=== PATIENT | female | born 1965 | race Caucasian/White ===

== ENCOUNTER 2019-05-18 06:24 | Inpatient (IN) | payer BC, OTHER ==
[~2019-05-18] VITALS: Ht 160 cm; Wt 56.7 kg
--- NOTE | 2019-05-18 06:24 | NUR ---
Note david in EDM - 05/18/19 at 0702 by MIK TO BED 4 BIB EMS FROM HOME C/O ETOH, OVERDOSE ON UNKNOWN AMOUTH OF SEROTUEL, TOPAMAX, LEXAPRO, AND APPROXIMATELY 6-8 PILLS OF NITE TIME COLD HEAD CONGESTION MEDICINE. PT REPORTS TO EMS THAT "SHE DIDN'T WANT TO WAKE UP ANYMORE" PER EMS REPORT. UPON ASSESSMENT PT REPORTS BEING "UNHAPPY AND A VERY DEMANDING JOB". UPON MD BOATENG PT STATES "I JUST WANT TO SLEEP BECAUSE I RAN OUT OF ALCOHOL". PT DENIES SI AND HI AT THIS TIME. NITE TIME COLD AND HEAD CONGESTION----EMPTY BOX TOPAMAX QTY 60PILLS----60 PILLS LEFT IN THE BOTTLE SEROQUEL 100MG, QTY 30 PILLS----EMPTY BOTTLE SEROQUEL 100MG, QTY 11PILLS----EMPTY BOTTLE SLEEP AID----PT REPORTS TOOK 6-8 PILLS AROUND [phone]
--- NOTE | 2019-05-18 06:24 | NUR ---
TO BED 4 BIB EMS FROM HOME C/O ETOH, OVERDOSE ON UNKNOWN AMOUTH OF SEROTUEL, TOPAMAX, LEXAPRO, AND APPROXIMATELY 6-8 PILLS OF NITE TIME COLD HEAD CONGESTION MEDICINE. PT REPORTS TO EMS THAT "SHE DIDN'T WANT TO WAKE UP ANYMORE" PER EMS REPORT. UPON ASSESSMENT PT REPORTS BEING "UNHAPPY AND A VERY DEMANDING JOB". UPON MD KILO PT STATES "I JUST WANT TO SLEEP BECAUSE I RAN OUT OF ALCOHOL". PT DENIES SI AND HI AT THIS TIME. NITE TIME COLD AND HEAD CONGESTION ----EMPTY BOX TOPAMAX QTY 60PILLS (FILLED ON 12/30/18) ----16 PILLS LEFT IN THE BOTTLE SEROQUEL 100MG, QTY 30 PILLS (FILLED ON 02/04/19) ----EMPTY BOTTLE SEROQUEL 100MG, QTY 11PILLS (FILLED ON 09/13/17) ----EMPTY BOTTLE SLEEP AID----PT REPORTS TOOK 6-8 PILLS AROUND [id number] Addendum: 05/18/19 at 0708 by ECABALLERO PT AAOX4 NO ACUTE DISTRESS NOTED, RESP EVEN AND UNLABORED. PLACE PT ON CARDIAC MONITORING, CONTINUOUS POX. ER MD AT BEDSIDE TO KILO PT WITH ORDERS RECEIVED.
--- NOTE | 2019-05-18 06:57 | NUR ---
SPOKE TO POISON CONTROL (MACK) ALL MEDS INFO PROVIDED REQUESTED. ADVICED TO MONITOR PT FOR SCRAP WHEELER DEPRESSION, SEIZURE PRECAUTION, HEPATOTOXICITY, CARDIOTOXICITY. POISON HIDE TANNER TRANSFERRED TO SPEAK TO ER .
[2019-05-18] MEDS ORDERED: PANTOPRAZOLE 40 MG VIAL IV ONE (07:00)
[2019-05-18] MEDS ORDERED: PANTOPRAZOLE 40 MG VIAL ONE (07:00)
[2019-05-18] MEDS ORDERED: IV NS 0.9% 1,000 ML BAG IV ONE (07:00)
--- NOTE | 2019-05-18 07:05 | NUR ---
IV INITIATED LAC 18G. LABS DRAWN FROM SITE. YARN SPOOLER AT BEDSIDE FOR COLLECTION. IV INTACT AND PATENT
--- NOTE | 2019-05-18 07:09 | NUR ---
PT UNABLE TO PROVIDE URINE SAMPLE AT THIS TIME, AWARE
[2019-05-18 07:13] LABS: BASOPHILS % (AUTO) 0.8 % (0.0-2.0); EOSINOPHILS % (AUTO) 1.2 % (0.0-6.0); HEMATOCRIT 39 % (33-45); HEMOGLOBIN 13.2 g/dL (11.5-14.8); LYMPHOCYTES % (AUTO) 36.1 % (20.0-44.0); MEAN CORPUSCULAR HGB CONC 34 g/dl (31.0-36.0); MEAN CORPUSCULAR VOLUME 95 fL (82-100); MONOCYTES # (AUTO) 0.3 /CMM (0.1-1.30); MONOCYTES % (AUTO) 11.4 % (2.0-12.0); NEUTROPHILS # (AUTO) 1.4 /CMM (1.8-8.9); NEUTROPHILS % (AUTO) 50.5 % (43.0-81.0); PLATELET COUNT (AUTO) 250 /CMM (150-450); RED BLOOD CELL COUNT(AUTO) 4.12 MIL/uL (4.0-5.2); WHITE BLOOD COUNT (AUTO) 2.7 K/uL (4.3-11.0)
--- NOTE | 2019-05-18 07:14 | NUR ---
REPORT GIVEN TO CARLO ART.
--- NOTE | 2019-05-18 07:39 | NUR ---
OMERO () CONTACT INFORMATION: [phone]
[2019-05-18 07:57] LABS: CALCIUM, SERUM 8.5 mg/dL (8.5-10.1); CREATININE 0.5 mg/dL (0.6-1.3); POTASSIUM 3.4 mmol/L (3.5-5.1)
[2019-05-18 08:13] LABS: BILIRUBIN,DIRECT 0.1 mg/dL (0.0-0.2); BILIRUBIN,TOTAL 0.1 mg/dL (0.2-1.0); TOTAL PROTEIN, SERUM 7.5 g/dL (6.4-8.2)
[2019-05-18 08:29] LABS: APPEARANCE,URINE Clear (CLEAR); BILIRUBIN,URINE Negative (NEGATIVE); BLOOD, URINE Negative Ery/uL (NEGATIVE); COLOR,URINE Yellow (YELLOW); KETONES,URINE Negative (NEGATIVE); LEUKOCYTE ESTERASE ,URINE Negative (NEGATIVE); NITRITE, URINE Negative (NEGATIVE); PROTEIN,URINE Negative (NEGATIVE); UGLUCOSE Negative (NEGATIVE); UROBILINOGEN,URINE 0.2 EU/dL (0.2)
[2019-05-18 08:32] LABS: SALICYLATE 1.8 mg/dL (2.8-20.0)
--- NOTE | 2019-05-18 09:17 | NUR ---
PATIENT AMBULATORY, IN NO DISTRESS. NEEDS ATTENDED.
--- NOTE | 2019-05-18 09:31 | NUR ---
CALLED [facility], SPOKE WITH PRINCESS. HE RECOMMENDS TREATING WITH NAC
--- NOTE | 2019-05-18 09:48 | NUR ---
PAGED NICHELLE ACUTE CARE CERTIFIED NURSING ASSISTANT FOR ADMISSION
[2019-05-18] MEDS ORDERED: ACETYLCYSTEINE IV ONE ×4 (10:00→15:30)
[2019-05-18] MEDS ORDERED: D5W IV ONE ×3 (10:00→11:00)
[2019-05-18] MEDS ORDERED: LORAZEPAM INJ 2 MG/ML VIAL IVP ONE (10:00)
[2019-05-18] MEDS ORDERED: LORAZEPAM INJ 2 MG/ML VIAL ONE (10:07)
[2019-05-18] MEDS ORDERED: ESTR1PAT86 (10:50)
[2019-05-18] MEDS ORDERED: QUET50TA79 PO (10:50)
--- NOTE | 2019-05-18 11:45 | NUR ---
REPORT GIVEN TO SHARON ART FOR TALIA.
--- NOTE | 2019-05-18 12:14 | NUR ---
PATIENT TRANSFERRED TO ROOM 111-1 VIA ACLS PROTOCOL. IN STABLE CONDITION. NO DISTRESS NOTED, NEEDS ATTENDED. ENDORSED TO SHARON ART.
[2019-05-18 12:15] VITALS: BP 154/84
--- NOTE | 2019-05-18 12:15 | NUR ---
RN NOTE RECEIVED PT FROM ER, AOX3, CO ABOUT PRESSURE IN MID CHEST AND DISCOMFORT WHEN EXHALING. PT AMBULATORY, CO BEING THIRSTY AND LITTLE HUNGER. IV INTACT AND IN PLACE, IV MUCOMYST INFUSING AT 129 ML/HR. SAFETY MEASURES IN PLACE, CALL LIGHT WITHIN REACH, SIDE RAILS PADDED, SITTERJONATAN AT BEDSIDE. VS STABLE. WILL F/U WITH ADMITTING MD FOR ORDERS. Addendum: 05/18/19 at 1929 by SHARON MO RN 1215 PT PLACED ON SIX PACK LOADER OPERATOR, ST 104.
[2019-05-18] MEDS ORDERED: LORAZEPAM INJ 2 MG/ML VIAL IV PRN ×2 (12:30)
[2019-05-18] MEDS ORDERED: MAGNESIUM HYDROXIDE 30 ML UDC PO PRN (12:30)
[2019-05-18] MEDS ORDERED: ZOLPIDEM TARTRATE 5 MG TABLET PO PRN (12:30)
[2019-05-18] MEDS ORDERED: MAG HYDROX/AL HYDROX/SIMETH 30 ML UDC PO PRN (12:30)
[2019-05-18] MEDS ORDERED: ONDANSETRON HCL/PF 4 MG/2 ML VIAL IVP PRN (12:30)
[2019-05-18] MEDS ORDERED: Z GUARD REMEDY 2 OZ OINT TP PRN (12:30)
[2019-05-18] MEDS ORDERED: IV D5/ 0.9% NACL 1,000 ML IV PRN (13:30)
[2019-05-18] MEDS ORDERED: DEXTROSE IV ONE (15:30)
[2019-05-18 16:00] VITALS: BP 139/91
--- NOTE | 2019-05-18 17:15 | NUR ---
RN NOTE RECEIVED CALL FROM WESLEY, PHARMACIST FROM POISON CONTROL RECOMMENDING TO REPEAT LFT, INR AND ACETAMINOPHEN LEVEL IN 15 HR AFTER INITIATING MYCOMYST IV FOR 16 HR, AND IF LFT INCREASED OR INR>2.0 TO CONTINUE MYCOMYST. WILL ENDORSE TO NEXT SHIFT.
--- NOTE | 2019-05-18 17:55 | NUR ---
RN NOTE PT EXPRESSED WISH TO GO HOME STATING "I AM FEELING FINE" SELIN PARK NOTIFIED, PT RECOMMENDED TO STAY FOR FURTHER WORK UP, RISKS OF LEAVING AMA AND BENEFITS TO STAY EXPLAINED, PT STILL WANTS TO LEAVE AMA. AMA PAPER SIGNED AND PLACED IN THE CHART. IV AND ID BAND REMOVED, BELONGINGS PROVIDED TO PT, PT WALKED OUT HERSELF, STATING "I LEAVE CLOSE BY." SHE SPOKE TO HER WELL ON THE PHONE.
== END 2019-05-18 18:00 | disposition home or self-care (01) | DRG 918 ==
LOC: ER 06:26 → TELE-TD 11:52
PROVIDERS: ADMIT Hospitalist; ATTEND Hospitalist
DX: T39.1X1A Poisoning by 4-Aminophenol derivatives, accidental (unintentional), initial encounter (principal); F10.239 Alcohol dependence with withdrawal, unspecified; G47.00 Insomnia, unspecified; Y92.009 Unspecified place in unspecified non-institutional (private) residence as the place of occurrence of the external cause; T51.0X1A Toxic effect of ethanol, accidental (unintentional), initial encounter; Y90.3 Blood alcohol level of 60-79 mg/100 ml; E87.6 Hypokalemia; Z79.899 Other long term (current) drug therapy; Z91.14 Patient's other noncompliance with medication regimen
CPT/HCPCS: 36415; 80048-TC; 80076-TC; 80305; 81000-TC; 85025-TC; 85730-TC; C9113; G0378; G0480; J0132; J2060; J7030; J7042; J7060; J7070

== ENCOUNTER 2019-07-02 21:05 | Inpatient (IN) | payer BC, OTHER ==
[~2019-07-02] VITALS: Ht 162.6 cm; Wt 56.2 kg
[~2019-07-02 21:05] MED LIST: ESTR1PAT86; QUET50TA79 PO
--- NOTE | 2019-07-02 21:08 | NUR ---
PT IN BED 10 BIB RA FROM HOME. PATIENT STATES CALLED 911 BECAUSE SHE HAD BEEN IN BED FOR WEEKS. PT ENDORSES DRINKING VODKA AND TAKING HER PRESCRIPTIONS. +NAUSEA, +VOMNITING. BROWN VOMIT W/ RED STREAKS OF BLOOD NOTED. AAOX3. NO SOB. BREATHING EVENLY AND UNLABORED ON ROOM AIR. CONNECTED TO MONITOR.
--- NOTE | 2019-07-02 21:21 | NUR ---
BLOOD DRAWN FROM PATIENT AND SENT TO LAB
[2019-07-02 21:23] LABS: BASOPHILS % (AUTO) 0.7 % (0.0-2.0); EOSINOPHILS % (AUTO) 0.3 % (0.0-6.0); HEMATOCRIT 38 % (33-45); HEMOGLOBIN 12.7 g/dL (11.5-14.8); LYMPHOCYTES # (AUTO) 1.4 /CMM (0.8-4.8); LYMPHOCYTES % (AUTO) 25.7 % (20.0-44.0); MEAN CORPUSCULAR HGB CONC 33 g/dl (31.0-36.0); MEAN CORPUSCULAR VOLUME 96 fL (82-100); MONOCYTES # (AUTO) 0.6 /CMM (0.1-1.30); MONOCYTES % (AUTO) 10.4 % (2.0-12.0); NEUTROPHILS # (AUTO) 3.3 /CMM (1.8-8.9); NEUTROPHILS % (AUTO) 62.9 % (43.0-81.0); PLATELET COUNT (AUTO) 197 /CMM (150-450); RED BLOOD CELL COUNT(AUTO) 3.96 MIL/uL (4.0-5.2); WHITE BLOOD COUNT (AUTO) 5.3 K/uL (4.3-11.0)
--- NOTE | 2019-07-02 21:32 | NUR ---
KALIND AT BEDSIDE FOR QUESTIONING
[2019-07-02 21:40] LABS: ALANINE AMINOTRANSFERASE 102 U/L (12-78); ALBUMIN 4.1 g/dL (3.4-5.0); ALCOHOL, BLOOD 25 mg/dL (0-0); ALKALINE PHOSPHATASE 55 U/L (46-116); ASPARTATE AMINOTRANSFERASE 97 U/L (15-37); BILIRUBIN,DIRECT 0.1 mg/dL (0.0-0.2); BILIRUBIN,TOTAL 0.4 mg/dL (0.2-1.0); CALCIUM, SERUM 8.9 mg/dL (8.5-10.1); CARBON DIOXIDE 19 mmol/L (21-32); CHLORIDE 89 mmol/L (98-107); CREATININE 0.6 mg/dL (0.6-1.3); GLUCOSE 161 mg/dL (74-106); POTASSIUM 3.3 mmol/L (3.5-5.1); SALICYLATE 5.4 mg/dL (2.8-20.0); SODIUM SERUM 129 mmol/L (136-145); TOTAL PROTEIN, SERUM 7.5 g/dL (6.4-8.2); UREA NITROGEN, BLOOD 6 mg/dL (7-18)
--- NOTE | 2019-07-02 21:40 | NUR ---
PATIENT DENIES SUICIDAL INTENT OR PLAN TO HARM SELF OR OTHERS PER SUICIDE SEVERITY RATING.
--- NOTE | 2019-07-02 21:45 | NUR ---
RECEIVED PILL BOTTLES FROM PT . SEROQUEL 50MG BOTTLE QUANTITY 30 FILLED ON 06/19/19- FOUND 12 PILLS LEFT IN THE BOTTLE PROZAC 20MG BOTTLE QUANTITY 30 FILLED ON 05/18/17- EMPTY BOTTLE BUPROPION XL 150MG QUANTITY 30 FILLED ON 05/20/15 - EMPTY BOTTLE CLARITIN BUBBLE PACK QUANTITY 10- EMPTY
--- NOTE | 2019-07-02 21:50 | NUR ---
NOTED PT HAVING A SEIZURE LASTING APPROXIMATELY 60SEC ER MD MADE AWARE WITH ORDERS RECEIVED. WILL CARRY OUT ORDERS.
[2019-07-02] MEDS ORDERED: LORAZEPAM INJ 2 MG/ML VIAL ONE (21:51)
[2019-07-02 21:52] LABS: ACETAMINOPHEN < 10 ug/ml (10-30)
--- NOTE | 2019-07-02 21:52 | NUR ---
NOTED PT HAVING ANOTHER SEIZURE LASTING APPROXIMATELY 30 SEC. ER MD REMAINS AT BEDSIDE. PT MEDICATED ORDERED. PLACE PT ON SEIXURE PRECATION WITH PADDED SIDERAIL. NOTED PT WITH ORAL TRAUMA, (+) URINARY INCONTINENCE. PT ON 100% NONREBREATHER MASK 15L, PT ON REMAINS ON CONTINUOUS CARDIAC MONITORING, CONTINUOUS POX. WILL CONTINUE TO MONITOR PT CLOSELY.
--- NOTE | 2019-07-02 21:55 | NUR ---
SPOKE WITH IVETTE FROM POISON CONTROL. PER IVETTE, BUPROPRION XL MOST LIKELY CAUSE FOR SEIZURE. MINIMUM 24HR OBSERVATION FOR DELAYED REACTION. MAINTAIN SEIZURE PRECAUTION AND KEEP PT ON HARNESS TIER MONITOR FOR PROLONGED QTC (ABOVE 500, CALL BACK POISON CONTROL) MONITOR FOR QRS WIDENING (ABOVE 120, CALL BACK POISON CONTROL) REPEAT EKG 4-6HRS REPEAR LIVER ENZYMES 3-4HRS Addendum: 07/02/19 at 2214 by CHARIS PER IVETTE FROM POISON CONTROL, ALSO REPEAT SALICYLATES 3-4HR
[2019-07-02] MEDS ORDERED: LORAZEPAM INJ 2 MG/ML VIAL IVP ONE (22:00)
--- NOTE | 2019-07-02 22:28 | NUR ---
STRAIGHT CATH DONE. APPROX 750 ML YELLOW URINE OUTPUT NOTED. PT WAS CLEANED AND DIAPER APPLIED. URINE SAMPLE SENT TO THE LAB.
--- NOTE | 2019-07-02 22:29 | NUR ---
PT BROUGHT TO CT
--- NOTE | 2019-07-02 22:29 | NUR ---
[facility] [place]
[2019-07-02] MEDS ORDERED: LABETALOL 20 MG/4 ML VIAL IV ONE (22:30)
[2019-07-02] MEDS ORDERED: IV NS 0.9% 1,000 ML BAG IV ONE (22:30)
[2019-07-02 22:35] LABS: APPEARANCE,URINE Clear (CLEAR); BILIRUBIN,URINE Negative (NEGATIVE); BLOOD, URINE Negative Ery/uL (NEGATIVE); COLOR,URINE Yellow (YELLOW); KETONES,URINE 15 (NEGATIVE); LEUKOCYTE ESTERASE ,URINE Negative (NEGATIVE); NITRITE, URINE Negative (NEGATIVE); PROTEIN,URINE Negative (NEGATIVE); UGLUCOSE Negative (NEGATIVE); UROBILINOGEN,URINE 0.2 EU/dL (0.2)
[2019-07-02] MEDS ORDERED: LABETALOL HCL IV 100MG VIAL ONE (22:47)
[2019-07-02 23:20] LABS: BACTERIA,URINE Rare /HPF (None Seen); RBC,URINE 0-2 /HPF (0-2); SQUAMOUS EPITHELIAL CELL,UR Rare /HPF (None Seen); WBC,URINE 0-2 /HPF (0-3)
--- NOTE | 2019-07-02 23:33 | NUR ---
PT RESTING COMFORTABLY, NO ACUTE DISTRESS NOTED, RESP EVEN AND UNLABORED. CALL LIGHT WITHIN REACH. PT REMAINS AT BEDSIDE. WILL CONTNINUE TO MONITOR PT CLOSELY. PT AND AWARE OF PENDING HOSPITAL ADMISSION. AWAITING BED AVAILABILITY FOR PT ADMISSION.
[2019-07-03] MEDS ORDERED: ONDANSETRON HCL/PF 4 MG/2 ML VIAL IVP PRN
[2019-07-03] MEDS ORDERED: Z GUARD REMEDY 2 OZ OINT TP PRN
[2019-07-03] MEDS ORDERED: LORAZEPAM INJ 2 MG/ML VIAL ONE (00:27)
--- NOTE | 2019-07-03 00:55 | NUR ---
BED ASSIGNMENT 309
--- NOTE | 2019-07-03 01:18 | NUR ---
report given to raquel ART for TALIA
[2019-07-03] MEDS: IV NS 0.9% 1,000 ML IV PRN ×2 (02:16→19:51)
--- NOTE | 2019-07-03 02:41 | NUR ---
TD RN NOTES RECEIVED PT FROM ER NURSE, A/O X 1 VERY RESTLESS. ON TELE MONITOR ST. ON NRB 15L NO RESPIRATORY DISTRESS NOTED. IV ACCESS ON LFA G 18 PATENT AND INTACT WITH NS RUNNING WELL @75CC/HR . SEIZURES PRECAUTION OBSERVED.
--- NOTE | 2019-07-03 02:42 | NUR ---
TD RN NOTES PT DENIES ANY SUICIDAL IDEATION. SITTER AT BEDSIDE.
[2019-07-03 02:43] LABS: BASOPHILS % (AUTO) 0.1 % (0.0-2.0); HEMATOCRIT 34 % (33-45); HEMOGLOBIN 11.7 g/dL (11.5-14.8); LYMPHOCYTES # (AUTO) 0.5 /CMM (0.8-4.8); LYMPHOCYTES % (AUTO) 5.7 % (20.0-44.0); MEAN CORPUSCULAR HGB CONC 34 g/dl (31.0-36.0); MEAN CORPUSCULAR VOLUME 94 fL (82-100); MONOCYTES # (AUTO) 0.5 /CMM (0.1-1.30); MONOCYTES % (AUTO) 5.3 % (2.0-12.0); NEUTROPHILS # (AUTO) 8.3 /CMM (1.8-8.9); NEUTROPHILS % (AUTO) 88.9 % (43.0-81.0); PLATELET COUNT (AUTO) 168 /CMM (150-450); RED BLOOD CELL COUNT(AUTO) 3.65 MIL/uL (4.0-5.2); WHITE BLOOD COUNT (AUTO) 9.4 K/uL (4.3-11.0)
--- NOTE | 2019-07-03 02:43 | NUR ---
LIVAN RN NOTES SPOKE TO XAVIER MACIAS, FOR POISON CONTROL RECOMMENDATION. PER NICHELLE CARRY OUT ORDERS SALICYLATE, EKG Q6H , LFTQ4H , CPK Q4H.
--- NOTE | 2019-07-03 02:45 | NUR ---
TD RN NOTES POISON CONTROL UPDATED REGARDING PT CONDITION. WILL CALL BACK IN AN HOUR.
[2019-07-03 02:48] VITALS: BP 112/77
[2019-07-03 02:59] LABS: ALBUMIN 3.7 g/dL (3.4-5.0); BILIRUBIN,TOTAL 0.8 mg/dL (0.2-1.0); CREATININE 0.5 mg/dL (0.6-1.3); MAGNESIUM 1.8 mg/dL (1.8-2.4); PHOSPHORUS 2.9 mg/dL (2.5-4.9); POTASSIUM 3.8 mmol/L (3.5-5.1); TOTAL PROTEIN, SERUM 6.7 g/dL (6.4-8.2)
[2019-07-03 03:01] LABS: ALBUMIN 3.7 g/dL (3.4-5.0); BILIRUBIN,DIRECT 0.2 mg/dL (0.0-0.2); BILIRUBIN,TOTAL 0.8 mg/dL (0.2-1.0); TOTAL PROTEIN, SERUM 6.7 g/dL (6.4-8.2)
[2019-07-03 03:08] LABS: THYROID STIMULATING HORMONE 2.93 uIU/mL (0.358-3.74)
[2019-07-03 04:00] VITALS: BP 132/83
--- NOTE | 2019-07-03 04:22 | NUR ---
TD RN NOTES PAGED ELECTRIC MOTOR REPAIRER FOR POISON CONTROL RECOMMENDATION
--- NOTE | 2019-07-03 05:29 | NUR ---
LIVAN RN NOTES ORDERED MAGNESIUM 2GM AND EKG SCHEDULED 1000 PER POISON CONTROL. NICHELLE MACIAS NOTIFIED.
[2019-07-03] MEDS: Magnesium 1GM/D5W 100ML PREMIX 100 ML IV SCH ×2 (05:39→06:27)
--- NOTE | 2019-07-03 06:10 | NUR ---
TD RN NOTES NO ACUTE CHANGES NOTED DURING THE SHIFT. PROVIDED COMFORT AND SAFETY. NO EPISODE OF SEIZURE NOTED. WILL ENDORSE TO THE AM NURSE FOR CONTINUITY OF CARE.
--- NOTE | 2019-07-03 07:30 | NUR ---
RN NOTE RECEIVED PT IN BED IN SUPINE POSITION. PT IS ALERT AND ORIENTED X 1. NO SOB NOTED. ON ROOM AIR. REORIENTED PT TO FACILITY. ON TELE MONITOR SINUS TACHYCARDIA. SKIN INTACT. CURRENTLY NPO. SIDE RAILS PADDED. SAFETY MEASURES IN PLACE. BED ALARM ON. WILL CONTINUE TO MONITOR.
[2019-07-03 08:00] VITALS: BP 128/80
--- NOTE | 2019-07-03 08:00 | NUR ---
RN NOTES PATIENT ASKED IF SHE WAS PLANNING TO KILL HERSELF WHEN SHE TOOK THE MEDICATION, BUT PATIENT DENIES IT AND SAID " I HAVE AN ALCOHOL PROBLEM THAT LYDIA BEEN FIGHTING FOR YEARS NOW. I JUST WANTED TO GO TO SLEEP. CAUSE IT FEELS GOOD." ASKED IF THERE IS SUICIDAL THOUGHTS AT THE MOMENT, PATIENT DENIES.
[2019-07-03] MEDS ORDERED: TOPI25TA49 PO (08:29)
[2019-07-03] MEDS ORDERED: QUET25TA PO (08:29)
[2019-07-03 12:00] VITALS: BP 116/74
--- NOTE | 2019-07-03 14:30 | NUR ---
RN NOTE SEEN AND EXAMINED BY JOSÉ MIGUEL MACIAS. WITH ORDER TO NOTIFY POISON CONTROL REGARDING PT'S STATUS AND TO ORDER PSYCHIATRIC CONSULT AND REGULAR DIET. SPOKE TO IVETTE FROM POISON CONTROL AND GAVE UPDATE ON VITALS, LABS AND RECENT EKGS. WITH RECOMENDATION TO DO REPEAT EKG.
[2019-07-03 16:00] VITALS: BP 124/83
--- NOTE | 2019-07-03 16:30 | NUR ---
Plant Floor Automation Manager requested by Dr. René Rios due to Drug Abuse. The pt. is a 54 year old Female brought paramedics. Per EMR, the pt. called the paramedics after the pt. overdosed on Prozac, Seroquel, Wellbutrin, and Claritin. Per EMR, pt. has Hx. of 2 failed suicide attempts. Patient denies current S.I. and stated, I took those drugs because I ran out of Vodka which I normally use. Per pt. she drinks about 1.5 pints of Vodka a day. Per pt. she has used [facility] for the past 20 years and has previously accepted inpatient rehab at [facility]. [facility] [[address] [place], [address]; [phone]] and [facility] ([facility]) [[address] [place] [address]; [phone]]. Per patients , Aryan Bennett [phone], he would like the pt. to return to [facility]. Rajni FAJARDO will follow up tomorrow for referral closer to discharge date if pt. is agreeable.
--- NOTE | 2019-07-03 17:00 | NUR ---
RN NOTES CALLED POISON CONTROL AND SPOKE TO LESLIE TO REPORT ON THE NEW EKG RESULT. OBTAINED RECOMMENDATION FOR STAT CMP, MG, CALCIUM, AND EKG IN 6 HOURS. LCALLED GILBERTO DALY TO RELAYED RECCOMMENDATION. LATTER, PERMITTED. ORDERS PLACED. NOTED AND CARRIED OUT
[2019-07-03 18:10] LABS: ALBUMIN 3.9 g/dL (3.4-5.0); BILIRUBIN,TOTAL 0.7 mg/dL (0.2-1.0); CALCIUM, SERUM 8.4 mg/dL (8.5-10.1); CREATININE 0.5 mg/dL (0.6-1.3); MAGNESIUM 2.3 mg/dL (1.8-2.4); TOTAL PROTEIN, SERUM 7.3 g/dL (6.4-8.2)
--- NOTE | 2019-07-03 19:00 | NUR ---
RN NOTE AWAITING CALL BACK FROM GILBERTO ALANIS REGARDING RECENT LAB VALUES. PT IS IN BED AWAKE AND ALERT X 2. SAFETY MEASURES IN PLACE. BED ALARM ON. SIDE RAILS PADDED, SITTER AT BEDSIDE FOR CLOSE MONITORING. ENDORSED TO ONCOMING SHIFT.
--- NOTE | 2019-07-03 19:00 | NUR ---
RN NOTES PAGED GILBERTO DALY TO RELAY LAB RESULTS. AWAITING RESPONSE
[2019-07-03 20:00] VITALS: BP 143/80
[2019-07-03] MEDS ORDERED: POTASSIUM CHLORIDE 20 MEQ TAB.PRT.SR PO ONE (20:00)
--- NOTE | 2019-07-03 20:33 | NUR ---
Patient awake alert and oriented x3.No acute distress noted.K+ 3.0 with orders to give K-DUR 40 MEQ PO given and KCL 40 meq IVPB.Report given to Jennifer Aj RN for continuity of care
--- NOTE | 2019-07-03 20:34 | NUR ---
DIRECTOR OF STRATEGIC ALLIANCES OPENING NOTES RECEIVED PATIENT IN BED, AWAKE, A/OX2. ON ROOM AIR, NO SOB OR RESPIRATORY DISTRESS NOTED. REORIENTED PT TO FACILITY. ON TELE MONITOR SINUS TACHYCARDIA WITH HR 102. DENIES ANY SUICIDAL THOUGHTS AT THE MOMENT. IV SITE LEFT FA 18G WITH NS RUNNING AT 75ML/HR, FLUSHING AND PATENT, NO INFILTRATION NOTED, SITE C/D/I. SAFETY MEASURES IN PLACE, SIDE RAILS UP X3 AND PADDED, BED ALARM ON, SITTER 1:1 FOR PT SAFETY. WILL CONTINUE TO MONITOR.
[2019-07-03] MEDS: POTASSIUM CL. PREMIX PERIPHER. 50 ML IV SCH ×3 (21:14→23:12)
[2019-07-04] VITALS: BP 148/86
--- NOTE | 2019-07-04 00:02 | NUR ---
RESOURCE PROGRAM TEACHER NOTES PATIENT STATED SHE HAS LOWER BACK SPASM AND IS REQUESTING FOR PAIN MEDICATION. WILL ADMINISTER PRN PAIN MEDICATION.
[2019-07-04] MEDS: ACETAMINOPHEN 325 MG TABLET PO PRN (00:11)
[2019-07-04] MEDS: POTASSIUM CL. PREMIX PERIPHER. 50 ML IV SCH (00:27)
--- NOTE | 2019-07-04 00:30 | NUR ---
FINAL INSPECTOR PAPER NOTES RT UNABLE TO DO EKG DESPITE DISCUSSION OF RISKS AND BENEFITS. WILL TRY AGAIN LATER.
--- NOTE | 2019-07-04 00:36 | NUR ---
RT NOTE Late Entry: Unable to perform EKG, Pt is non compliant. hat cone inspector is aware
[2019-07-04] MEDS ORDERED: LORAZEPAM INJ 2 MG/ML VIAL IV STA ×2 (01:10→03:13)
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
--- NOTE | 2019-07-04 02:01 | NUR ---
HIGH LIFT DRIVER NOTES CALLED PATIENT'S , OMERO TO HELP PATIENT CALM DOWN. EXPLAINED TO PT'S THAT PT WAS VERY AGITATED AND CONFUSED. ALSO, EXPLAINED TO THAT PT WAS GIVEN ATIVAN TO HELP CALM HER DOWN. WILL CONT TO MONITOR PT CLOSELY.
--- NOTE | 2019-07-04 03:05 | NUR ---
0305 PATIENT IS GETTING VERY AGITATED AGAIN, AT BEDSIDE AND TRYING TO CALM PATIENT DOWN TO NO AVAIL. KETTLE HAND GEE NOTIFIED WITH ORDER TO GIVE ANOTHER DOSE OF ATIVAN 1 MG IVP. ORDER NOTED AND NOTIFIED OF ORDER.
--- NOTE | 2019-07-04 03:22 | NUR ---
0322 UNABLE TO GIVE ATIVAN DUE TO PATIENT JUST PULLED OUT HER IV ACCESS. TREASURY DIRECTOR GEE MADE AWARE AND WANT TO DO STAT EKG BEFORE SHE COULD GIVE AN ORDER FOR HALDOL. MADE HER AWARE THAT EKG CANNOT BE DONE BECAUSE PATIENT IS VERY AGITATED AND WOULD NOT LET NURSES AND RT PUT EKG LEADS ON. PATIENT UP AND OUT OF BED TRYING TO LEAVE ROOM. REMAINS AT BEDSIDE AND TRYING TO CALM PATIENT DOWN. PATIENT IS GETTING EVEN MORE AGITATED AND SCREAMING. NO SIGNS OF DISTRESS NOTED. ASSISTED PATIENT TO CHAIR.
[2019-07-04] MEDS ORDERED: diphenhydrAMINE HCL 50 MG/ML VIAL IV STA (03:34)
--- NOTE | 2019-07-04 03:50 | NUR ---
0350 STILL UNABLE TO DO EKG DUE TO PATIENT AGITATION. NEW IV ACCESS ESTABLISHED AND BENADRYL WAS GIVEN ORDERED. ASSISTED PATIENT BACK TO BED. REMAINS AT BEDSIDE. WILL CONT. TO MONITOR PATIENT. RAILS KEPT PADDED FOR SEIZURE PRECAUTION. KEPT PATIENT CLEAN AND DRY. CALL LIGHT PLACED WITHIN REACH. NURSE IN THE ROOM WATCHING PATIENT.
--- NOTE | 2019-07-04 03:56 | NUR ---
COMPUTER AIDED DESIGN TECHNICIAN NOTES PATIENT REFUSING IV FLUIDS AND VITAL SIGNS; GETS MORE AGITATED WHEN BEING TOUCHED. STILL AT BEDSIDE. WILL CONT TO MONITOR PT CLOSELY.
--- NOTE | 2019-07-04 06:17 | NUR ---
MANAGER SWITCH NOTES PATIENT STILL REFUSING VITAL SIGNS AND IV INSERTION DESPITE DISCUSSION OF RISKS AND BENEFITS. PT HALLUCINATING AND STATED "EVERYTHING IS FINE. I DON'T NEED AN IV. JUST FIX THOSE BOOKS BEHIND YOU" PATIENT ALSO NOT ANSWERING WHEN BEING ASKED FOR HER NAME AND BIRTHDAY. WILL CONT TO MONITOR PT CLOSELY.
--- NOTE | 2019-07-04 06:40 | NUR ---
VENDING MACHINE COLLECTOR NOTES PATIENT AGITATED AGAIN AND HITTING STAFF. HOSPITALIST MADE AWARE AND ORDERED BILATERAL SOFT WRIST RESTRAINTS. WILL ATTEND TO ORDERS.
[2019-07-04 07:00] VITALS: BP 149/87
--- NOTE | 2019-07-04 07:31 | NUR ---
RAG BOILER CLOSING NOTES PATIENT IN BED, AWAKE, A/OX1-2. SITTER 1:1 FOR PT SAFETY. ON ROOM AIR, NO SOB OR RESPIRATORY DISTRESS NOTED. REORIENTED PT TO FACILITY. ON TELE MONITOR SINUS TACHYCARDIA WITH HR 106. DENIES ANY SUICIDAL THOUGHTS AT THE MOMENT. IV SITE RIGHT FA 22G WITH NS RUNNING AT 75ML/HR, FLUSHING AND PATENT, NO INFILTRATION NOTED. BILATERAL WRIST RESTRAINTS D/T PT HITTING STAFF AND REMOVING IV LINE. SAFETY MEASURES IN PLACE, SIDE RAILS UP X2 AND PADDED, BED ALARM ON. ENDORSED TO AM RN FOR TALIA. Addendum: 07/04/19 at 0845 by HUGO GUADALUPE RN ATIVAN 1MG VIA IV NEVER GIVEN D/T HOSPITALIST CHANGED ORDER. MEDICATION WASTED PER PROTOCOL.
[2019-07-04 07:41] LABS: BASOPHILS % (AUTO) 0.2 % (0.0-2.0); EOSINOPHILS % (AUTO) 0.2 % (0.0-6.0); HEMATOCRIT 37 % (33-45); HEMOGLOBIN 12.7 g/dL (11.5-14.8); LYMPHOCYTES # (AUTO) 1.2 /CMM (0.8-4.8); LYMPHOCYTES % (AUTO) 11.8 % (20.0-44.0); MEAN CORPUSCULAR HGB CONC 34 g/dl (31.0-36.0); MEAN CORPUSCULAR VOLUME 95 fL (82-100); MONOCYTES # (AUTO) 0.9 /CMM (0.1-1.30); MONOCYTES % (AUTO) 8.9 % (2.0-12.0); NEUTROPHILS # (AUTO) 7.8 /CMM (1.8-8.9); NEUTROPHILS % (AUTO) 78.9 % (43.0-81.0); PLATELET COUNT (AUTO) 165 /CMM (150-450); RED BLOOD CELL COUNT(AUTO) 3.89 MIL/uL (4.0-5.2); WHITE BLOOD COUNT (AUTO) 9.8 K/uL (4.3-11.0)
--- NOTE | 2019-07-04 07:45 | NUR ---
RN NOTE RECEIVED PATIENT IN BED AWAKE AND ALERT. ORIENTED X 2, PATIENT SCREAMING UNCONTROLLABLY. RESTRAINTS IN PLACE. WITH 1;1 SITTER. DECREASED STIMULI IN ROOM. SAFETY MEASURES IN PLACE. SIDE RAILS PADDED. CALL LIGHT WITHIN REACH. WILL MONITOR.
[2019-07-04 08:00] VITALS: BP 135/88
[2019-07-04 08:03] LABS: CALCIUM, SERUM 8.9 mg/dL (8.5-10.1); CREATININE 0.6 mg/dL (0.6-1.3); POTASSIUM 3.7 mmol/L (3.5-5.1)
[2019-07-04] MEDS ORDERED: OLANZAPINE 10 MG VIAL IM ONE ×2 (08:30→15:10)
[2019-07-04] MEDS ORDERED: LORAZEPAM INJ 2 MG/ML VIAL IV PRN (10:30)
--- NOTE | 2019-07-04 11:30 | NUR ---
RN NOTE RUBENS GUZMAN FROM CRISIS TEAM IS HERE. ORIGINAL COPY OF 3729 HOLD IS IN THE PATIENT'S CHART.
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
--- NOTE | 2019-07-04 11:38 | NUR ---
RN NOTE POISON CONTROL CALLED. UPDATE GIVEN REGARDING PT BEHAIVOR, EKG AND VITAL SIGNS. NO RECCOMENDATIONS GIVEN AT THIS TIME.
[2019-07-04 12:00] VITALS: BP 130/95
--- NOTE | 2019-07-04 12:00 | NUR ---
RN NOTE GPS BED 219B AVAILABLE, WAITING FOR ADDY'S CALL BACK TO GET DISCHARGE ORDER.
--- NOTE | 2019-07-04 12:17 | NUR ---
RN NOTE TALKED TO ADDY AUTOMOBILE ACCESSORIES INSTALLER REGARDING PT POSSIBLE DISCHARGE. PER AUTOMOBILE ACCESSORIES INSTALLER, CANCEL D/C TODAY AND CONTINUE MONITORING PT, POSSIBLE DC TOMORROW FOR GPS.
--- NOTE | 2019-07-04 12:50 | NUR ---
RN NOTE CCRS WAS DONE AT BEDSIDE. EVEN WITH EXTREME AGITATION; PATIENT IS NOT HAVING ANY SUICIDAL IDEATION OR ANY PLANS AT THIS TIME.
[2019-07-04] MEDS: LORAZEPAM INJ 2 MG/ML VIAL IV PRN (14:07)
--- NOTE | 2019-07-04 14:35 | NUR ---
RN NOTE FAXED OVER THE PATIENT'S FACE SHEET INFORMATION TO GPS REQUESTED
--- NOTE | 2019-07-04 14:59 | NUR ---
RN NOTE PT WITH SLIGHT AGITATION NOTED. SITTER AT BEDSIDE. PERICARE, BED BATH DONE ALONG WITH PARTIAL LINEN CHANGE COMPLETED WITH 2 PERSON ASSIST. WILL CONTINUE TO MONITOR.
--- NOTE | 2019-07-04 15:31 | NUR ---
RN NOTE DR LEIGH AT BEDSIDE ASSESSING/EVALUATING THE PATIENT. PATIENT STARTED TO GET VERY AGITATED AND SCREAMING AT THE DOCTOR. TRYING TO GET UP AND WANTED TO LEAVE THE ROOM. SITTER AT BEDSIDE AND TRYING TO CALM HER DOWN. PER MD'S ORDER, GIVE ANOTHER ZYPREXA IM 10MG NOW. ORDER CARRIED OUT. PICKED UP MEDICATION FROM PHARMACY AND ADMINISTERED TO THE PATIENT. , OMERO, AT BEDSIDE AND TALKED TO DR LEIGH IN DETAIL ABOUT THE PLAN OF CARE
[2019-07-04 16:15] VITALS: BP 143/87
--- NOTE | 2019-07-04 16:35 | NUR ---
RN NOTE ATTEMPTED TO ADMINISTER MEDICATION PO ORDERED BY DR. LEIGH BUT PATIENT STRONGLY REFUSED. EXPLAINED RISKS AN BENEFITS. PT PRESENTS WITH ANXIETY AND AGITATION. PAGED DR. LEIGH.
--- NOTE | 2019-07-04 16:49 | NUR ---
RN NOTE PATIENT WAS VERY AGITATED WHEN TRYING TO GIVE HER PO MEDS THAT DR LEIGH ORDERED. PAGED MD AGAIN AND TOLD HIM THAT PATIENT IS REFUSING. PER MD, GIVE HALDOL 5MG IM Q4H PRN FOR AGITATION (DO NOT EXCEED 20MG IN 24H) AND COGENTIN 1MG IM Q4H PRN FOR EPS (DO NOT EXCEED 4MG IN 24H). ORDER CARRIED OUT.
--- NOTE | 2019-07-04 16:57 | NUR ---
RN NOTE EMPLOYEE'S REPORT OF INJURY FORM WAS SIGNED BY THE [employer] KELLY. WILL FAX OVER TO [employer]PLOYEE [employer]. Addendum: 07/04/19 at 1704 by GIUSEPPE ONEAL RN NO FAX NUMBER OF [employer]EE [employer] AVAILABLE. TRIED CALLING BUT NO ONE IS PICKING UP. PER MICKIE AUTO HEADLIGHT MECHANIC, JUST LEAVE PAPERWORK TO SHAHIDA'S BOX/OFFICE
[2019-07-04] MEDS: HALOPERIDOL 5 MG TABLET PO SCH (17:00)
[2019-07-04] MEDS ORDERED: HALOPERIDOL LACTATE INJ 5 MG/ML VIAL IM PRN (17:00)
[2019-07-04] MEDS ORDERED: BENZTROPINE MESYLATE (2MG/2ML) 2 MG/2 ML AMPUL IM PRN (17:00)
[2019-07-04] MEDS: CARBAMAZEPINE 200 MG TABLET PO SCH (17:00)
[2019-07-04] MEDS: BENZTROPINE MESYLATE (1 MG) 1 MG TABLET PO SCH (17:00)
--- NOTE | 2019-07-04 17:16 | NUR ---
PATIENT REFUSED ECHOCARDIOGRAM TEST. PT NOT COOPERATIVE, KEEPS MOVING AND COMBATIVE. INFORMED CHARGE NURSE.
[2019-07-04] MEDS ORDERED: Thiamine 100 MG in IV D5W 50 ML IV SCH (18:00)
--- NOTE | 2019-07-04 19:13 | NUR ---
RN NOTE PATIENT IN BED WITH 1:1 SITTER. PT CLEAN AND DRY. WITH MILD MANIFESTATIONS OF ANXIETY AND AGITATION. BILATERAL SOFT MITTEN RESTRAINTS IN PLACE. SKIN AND CIRCULATION CHECKED. NO SOB NOTED. PADDED SIDE RAILS IN PLACE. BED ALARM ON AND FULLY FUNCTIONAL. ENDORSED TO ONCOMING SHIFT.
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
[2019-07-04 21:00] VITALS: BP 148/96
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
[2019-07-05] MEDS: ACETAMINOPHEN 325 MG TABLET PO PRN ×2 (01:06→09:37)
[2019-07-05 05:00] VITALS: BP 140/89
[2019-07-05] MEDS: IV NS 0.9% 1,000 ML IV PRN (06:21)
[2019-07-05 06:43] LABS: BASOPHILS % (AUTO) 0.4 % (0.0-2.0); EOSINOPHILS % (AUTO) 0.9 % (0.0-6.0); HEMATOCRIT 35 % (33-45); HEMOGLOBIN 11.8 g/dL (11.5-14.8); LYMPHOCYTES # (AUTO) 1.6 /CMM (0.8-4.8); LYMPHOCYTES % (AUTO) 23.6 % (20.0-44.0); MEAN CORPUSCULAR HGB CONC 34 g/dl (31.0-36.0); MEAN CORPUSCULAR VOLUME 96 fL (82-100); MONOCYTES # (AUTO) 0.9 /CMM (0.1-1.30); MONOCYTES % (AUTO) 12.6 % (2.0-12.0); NEUTROPHILS # (AUTO) 4.3 /CMM (1.8-8.9); NEUTROPHILS % (AUTO) 62.5 % (43.0-81.0); PLATELET COUNT (AUTO) 145 /CMM (150-450); RED BLOOD CELL COUNT(AUTO) 3.65 MIL/uL (4.0-5.2); WHITE BLOOD COUNT (AUTO) 6.9 K/uL (4.3-11.0)
--- NOTE | 2019-07-05 07:00 | NUR ---
NURSES NOTE PATIENT RECEIVED SUPINE IN BED. PATINE IN ALERT, ORIENTED CONDITION. NO COMPLAINTS OF SUICIDAL IDEATION AT THIS TIME. PATIENT DENIES C/P OR SOB. PATIENT ALERT X4 AT THIS TIME. AROM ALL EXTREMITIES WITH GENERALIZED WEAKNESS NOTE. PATIENT CONTINENT AND ABLE TO USE RESTROOM WITH STAND BY ASSISTANCE. WILL CONTINUE TO MONITOR. ALARMS ON. PATIENT 1 TO 1 SITTER THIS TIME. NO RESTRAINTS IN PLACE.
[2019-07-05 07:07] LABS: CALCIUM, SERUM 8.6 mg/dL (8.5-10.1); CREATININE 0.5 mg/dL (0.6-1.3)
--- NOTE | 2019-07-05 07:35 | NUR ---
RN CLOSING NOTES NO SIGNIFICANT CHANGES IN Pt's CONDITION. Pt REMAINS STABLE PER BASELINE. NO S/S OF ACUTE DISTRESS OR SEVERE SOB NOTED DURING THE SHIFT. ALL NEEDS MET AND ATTENDED TO. SAFETY MEASURES IN PLACE. SITTER AT BEDSIDE. ENDORSED TO DAYSHIFT RN FOR Pt's TALIA.
[2019-07-05] MEDS: BENZTROPINE MESYLATE (1 MG) 1 MG TABLET PO SCH ×2 (08:37→09:36)
[2019-07-05] MEDS: HALOPERIDOL 5 MG TABLET PO SCH (08:37)
[2019-07-05] MEDS ORDERED: SERTRALINE HCL 50 MG TABLET PO SCH (09:00)
[2019-07-05] MEDS: CARBAMAZEPINE 200 MG TABLET PO SCH (09:36)
[2019-07-05] MEDS ORDERED: CHLO25CA22 PO ×4 (10:35)
[2019-07-05] MEDS ORDERED: THIA100T88 PO ×2 (10:35→14:16)
[2019-07-05] MEDS: LORAZEPAM INJ 2 MG/ML VIAL IV PRN (10:37)
[2019-07-05] MEDS ORDERED: POTASSIUM CHLORIDE 20 MEQ TAB.PRT.SR PO SCH (11:00)
--- NOTE | 2019-07-05 12:21 | NUR ---
NURSES NOTE PATIENT DISCHARGED TO ROOM [address] [facility] GPS. PATIENT OMERO AT BEDSIDE WITH PATIENT. PATIENT TRANSFERRED VIA WHEELCHAIR. NO FALLS NOTED. PATIENT IN ALERT, ORIENTED AND STABLE CONDITION. PATIENT REPORT GIVEN TO RUBENS HANKS AT BEDSIDE. ALL INVASIVE LINES REMOVED. ALL QUESTIONS ANSWERED. PATIENT SKIN INTACT.
[2019-07-05] MEDS ORDERED: HALO5SYR IM (14:12)
[2019-07-05] MEDS ORDERED: HALO5TAB PO (14:12)
[2019-07-05] MEDS ORDERED: CARB200T PO (14:12)
[2019-07-05] MEDS ORDERED: TYL2T PO (14:12)
[2019-07-05] MEDS ORDERED: BENZ1TAB7 PO (14:12)
[2019-07-05] MEDS ORDERED: THIA500T PO (14:14)
[2019-07-05] MEDS ORDERED: SERT50TA PO (14:18)
[2019-07-05] MEDS ORDERED: BENZ2AMP3 IM (14:24)
[2019-07-05] MEDS ORDERED: THIAMINE HCL 100 MG TABLET PO SCH (18:00)
== END 2019-07-05 12:52 | DRG 918 ==
LOC: ER 21:07 → TELE-TD 07-03 01:00 → MEDSG1 07-03 11:25 → TELE1 07-03 18:09 → MEDSG1 07-04 13:05
PROVIDERS: ADMIT Hospitalist; ATTEND Nurse Practitioner Acute Care
DX: T43.222A Poisoning by selective serotonin reuptake inhibitors, intentional self-harm, initial encounter (principal); E87.1 Hypo-osmolality and hyponatremia; F33.2 Major depressive disorder, recurrent severe without psychotic features; F10.231 Alcohol dependence with withdrawal delirium; Y92.89 Other specified places as the place of occurrence of the external cause; R56.9 Unspecified convulsions; E87.6 Hypokalemia; Z91.5 Personal history of self-harm; Z88.0 Allergy status to penicillin; Z88.2 Allergy status to sulfonamides; Y92.9 Unspecified place or not applicable; Z79.899 Other long term (current) drug therapy; T43.591A Poisoning by other antipsychotics and neuroleptics, accidental (unintentional), initial encounter; T43.291A Poisoning by other antidepressants, accidental (unintentional), initial encounter; T45.0X1A Poisoning by antiallergic and antiemetic drugs, accidental (unintentional), initial encounter; E86.1 Hypovolemia; R94.31 Abnormal electrocardiogram [ECG] [EKG]; Y90.1 Blood alcohol level of 20-39 mg/100 ml; F29 Unspecified psychosis not due to a substance or known physiological condition
CPT/HCPCS: 36415; 70450-TC; 71045-TC; 80048-TC; 80053-TC; 80061-TC; 80076-TC; 80305; 81000-TC; 82550-TC; 83690-TC; 83735-TC; 84100-TC; 84443-TC; 84484-TC; 85025-TC; 85730-TC; 87081-TC; 97116-TC; 97530-TC; G0378; G0480; J0515; J1200; J2060; J3411; J3475; J3480; J3490; J7030; J7060

== ENCOUNTER 2019-07-05 11:40 | Inpatient (IN) | payer OTHER ==
[~2019-07-05] VITALS: Ht 162.6 cm; Wt 63.5 kg
[~2019-07-05 11:40] MED LIST changes: +CHLO25CA22 PO; -ESTR1PAT86; +QUET25TA PO; -QUET50TA79 PO; +THIA100T88 PO; +TOPI25TA49 PO
[2019-07-05 12:00] VITALS: BP 131/94
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
[2019-07-05] MEDS ORDERED: LORAZEPAM 0.5 MG TABLET PO PRN (12:30)
[2019-07-05] MEDS ORDERED: BLOOD SUGAR DIAGNOSTIC 1 EACH STRIP IN ONE (12:30)
[2019-07-05] MEDS ORDERED: MAG HYDROX/AL HYDROX/SIMETH 30 ML UDC PO PRN (12:30)
[2019-07-05] MEDS ORDERED: MAGNESIUM HYDROXIDE 30 ML UDC PO PRN (12:30)
[2019-07-05] MEDS ORDERED: TEMAZEPAM 7.5 MG CAPSULE PO PRN ×2 (12:30→14:00)
--- NOTE | 2019-07-05 13:12 | NUR ---
GPS/RN STILL WAITING FOR JOSÉ MIGUEL DALY BURSAR TO CALL BACK(PAGED VIA [facility] EXCHANGE FOR THE ORDERS)
[2019-07-05] MEDS ORDERED: BENZ1TAB7 PO (14:12)
[2019-07-05] MEDS ORDERED: HALO5TAB PO (14:12)
[2019-07-05] MEDS ORDERED: CARB200T PO (14:12)
[2019-07-05] MEDS ORDERED: TYL2T PO (14:12)
[2019-07-05] MEDS ORDERED: HALO5SYR IM (14:12)
[2019-07-05] MEDS ORDERED: THIA500T PO (14:14)
[2019-07-05] MEDS ORDERED: THIA100T88 PO (14:16)
[2019-07-05] MEDS ORDERED: SERT50TA PO (14:18)
[2019-07-05] MEDS ORDERED: BENZ2AMP3 IM (14:24)
[2019-07-05] MEDS ORDERED: POTASSIUM CHLORIDE 20 MEQ TAB.PRT.SR PO ONE (14:30)
[2019-07-05] MEDS: CHLORDIAZEPOXIDE HCL 25 MG CAPSULE PO SCH ×2 (15:37→18:01)
[2019-07-05 16:00] VITALS: BP 145/90
[2019-07-05] MEDS: BENZTROPINE MESYLATE (1 MG) 1 MG TABLET PO SCH (17:14)
[2019-07-05] MEDS: CARBAMAZEPINE 200 MG TABLET PO SCH (17:14)
[2019-07-05] MEDS: HALOPERIDOL 5 MG TABLET PO SCH (17:14)
[2019-07-05] MEDS: THIAMINE HCL 100 MG TABLET PO SCH (17:14)
[2019-07-05 20:01] VITALS: BP 135/90
[2019-07-06] MEDS: ACETAMINOPHEN 325 MG TABLET PO PRN ×2 (05:42→11:45)
--- NOTE | 2019-07-06 05:43 | NUR ---
GPS RN NOTE: PATIENT C/O GENERAL BODY SORENESS 12/08, TYLENOL 650 MG PO GIVEN. WILL CONTINUE TO MONITOR Q15 MINS FOR SAFETY
[2019-07-06 07:43] LABS: CHOLESTEROL 171 mg/dL (<200); HDL CHOLESTEROL 70 mg/dL (40-60); LDL 74 mg/dL (0-99); TRIGLYCERIDES 58 mg/dL (30-150)
[2019-07-06 07:44] LABS: ALBUMIN 3.3 g/dL (3.4-5.0); BILIRUBIN,TOTAL 0.5 mg/dL (0.2-1.0); CALCIUM, SERUM 8.8 mg/dL (8.5-10.1); CREATININE 0.6 mg/dL (0.6-1.3); POTASSIUM 3.2 mmol/L (3.5-5.1); TOTAL PROTEIN, SERUM 6.6 g/dL (6.4-8.2)
[2019-07-06 08:00] VITALS: BP 138/89
[2019-07-06] MEDS: CARBAMAZEPINE 200 MG TABLET PO SCH ×3 (08:18→17:11)
[2019-07-06] MEDS: HALOPERIDOL 5 MG TABLET PO SCH ×3 (08:48→17:10)
[2019-07-06] MEDS: BENZTROPINE MESYLATE (1 MG) 1 MG TABLET PO SCH ×3 (08:48→17:10)
[2019-07-06] MEDS: SERTRALINE HCL 50 MG TABLET PO SCH (08:48)
[2019-07-06] MEDS ORDERED: POTASSIUM CHLORIDE 20 MEQ TAB.PRT.SR PO ONE ×2 (11:30)
[2019-07-06] MEDS: CHLORDIAZEPOXIDE HCL 25 MG CAPSULE PO SCH ×3 (11:43→17:09)
--- NOTE | 2019-07-06 13:00 | NUR ---
FAMILY CONTACT: SW contacted pts Aryan [phone] he states that he does not want pt to return home ([id number] [facility] [address]) and wishes for pt to go directly to a rehab facility for recovery. stated that he is already in contact with [facility] and will be coming on this present day along with pts best friend to convince pt to go. states that discharging pt back home is not a safe discharge as pt needs recovery and cannot go back to the same environment she was in before this hospitalization.
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
--- NOTE | 2019-07-06 14:45 | NUR ---
INITIAL DISCHARGE PLAN: Per pts Aryan [phone] he states that he does not want pt to return home ([id number] [facility] [address]) and wishes for pt to go directly to a rehab facility for recovery. SW will help form a safe and proper discharge in collaboration with pts and .
[2019-07-06 16:00] VITALS: BP 131/95
[2019-07-06] MEDS: THIAMINE HCL 100 MG TABLET PO SCH (17:13)
[2019-07-06 20:32] VITALS: BP 121/83
[2019-07-07 07:54] LABS: CREATININE 0.5 mg/dL (0.6-1.3); POTASSIUM 3.9 mmol/L (3.5-5.1)
[2019-07-07 08:00] VITALS: BP 120/83
[2019-07-07] MEDS ORDERED: CHLORDIAZEPOXIDE HCL 25 MG CAPSULE PO SCH (08:00)
[2019-07-07] MEDS: SERTRALINE HCL 50 MG TABLET PO SCH (09:14)
[2019-07-07] MEDS: CARBAMAZEPINE 200 MG TABLET PO SCH ×3 (09:14→17:19)
[2019-07-07] MEDS: BENZTROPINE MESYLATE (1 MG) 1 MG TABLET PO SCH ×3 (09:14→17:19)
[2019-07-07] MEDS: HALOPERIDOL 5 MG TABLET PO SCH ×3 (09:14→17:19)
[2019-07-07] MEDS: ACETAMINOPHEN 325 MG TABLET PO PRN (09:16)
[2019-07-07] MEDS: CHLORDIAZEPOXIDE HCL 5 MG CAPSULE PO SCH ×2 (09:16→17:19)
[2019-07-07 16:05] VITALS: BP 132/81
[2019-07-07] MEDS: THIAMINE HCL 100 MG TABLET PO SCH (17:20)
--- NOTE | 2019-07-07 19:31 | NUR ---
GPS RN NOTE RECEIVED PATIENT SITTING UP IN BED, A & O X 3 BUT FORGETFUL. NO ACUTE DISTRESS NOTED AT THIS TIME. NO C/O PAIN VERBALIZED. SAFETY MEASURES IN PLACE. WILL CONTINUE TO MONITOR FOR SAFETY & BEHAVIOR.
[2019-07-07 20:10] VITALS: BP 123/73
--- NOTE | 2019-07-08 06:24 | NUR ---
GPS RN CLOSING NOTE PATIENT SLEPT 8 HOURS AT NIGHT, NO DISTRESS, NO C/O PAIN VERBALIZED. NO CHANGE OF CONDITION NOTED. ALL NEEDS ATTENDED TO & MET. SAFETY MEASURES MAINTAINED. Q15 MINS CHECKS DONE. NO SI/HI/AVH VERBALIZED DURING THE SHIFT. BED IN LOW LOCKED POSITION. BED ALARM ON. CALL LY WITHIN REACH. WILL ENDORSE TO AM RN FOR CONTINUITY OF CARE.
[2019-07-08 08:00] VITALS: BP 114/66
[2019-07-08] MEDS: ACETAMINOPHEN 325 MG TABLET PO PRN ×2 (09:13→19:19)
[2019-07-08] MEDS: SERTRALINE HCL 50 MG TABLET PO SCH (09:13)
[2019-07-08] MEDS: HALOPERIDOL 5 MG TABLET PO SCH ×3 (09:13→17:12)
[2019-07-08] MEDS: CARBAMAZEPINE 200 MG TABLET PO SCH ×3 (09:13→17:12)
[2019-07-08] MEDS: BENZTROPINE MESYLATE (1 MG) 1 MG TABLET PO SCH ×3 (09:14→17:12)
[2019-07-08] MEDS: CHLORDIAZEPOXIDE HCL 25 MG CAPSULE PO SCH ×2 (09:14→17:12)
[2019-07-08] MEDS ORDERED: LIDOCAINE 5% (PATCH) 1 EA PATCH TP SCH (14:00)
--- NOTE | 2019-07-08 15:54 | NUR ---
RN NOTE- C/O CONSTIPATION. NO BM X TWO DAYS. MOM 30 ML GIVEN. MONITOR
[2019-07-08 16:00] VITALS: BP 127/74
[2019-07-08] MEDS: THIAMINE HCL 100 MG TABLET PO SCH (17:12)
--- NOTE | 2019-07-08 19:20 | NUR ---
RN NOTE- C/O HEADACHE. TYLENOL 650 MG GIVEN
[2019-07-08 20:27] VITALS: BP 136/91
--- NOTE | 2019-07-08 21:25 | NUR ---
patient refused skin assessment.
[2019-07-09 08:00] VITALS: BP 105/74
[2019-07-09] MEDS: CARBAMAZEPINE 200 MG TABLET PO SCH ×2 (08:29→12:14)
[2019-07-09] MEDS: BENZTROPINE MESYLATE (1 MG) 1 MG TABLET PO SCH ×2 (08:29→12:14)
[2019-07-09] MEDS: SERTRALINE HCL 50 MG TABLET PO SCH (08:29)
--- NOTE | 2019-07-09 08:30 | NUR ---
FAMILY CONTACT: SCOTTY received a call from pts Aryan [phone] stating that pt will be discharged on this present day to [facility] and that he wished for SCOTTY to coordinate discharge with Gretta, admission coordinator [phone] and to fax clinicals so that an intake appointment can be scheduled. SCOTTY will coordinate discharge with [facility].
--- NOTE | 2019-07-09 08:35 | NUR ---
TREATMENT CENTER: SCOTTY contacted Gretta, intake and market research coordinator at [facility] [address] [facility], [address] [place] [address] and left a voicemail for callback.
--- NOTE | 2019-07-09 08:45 | NUR ---
TREATMENT CENTER: SCOTTY received a voicemail from Mary Grace, intake and construction project coordinator at [facility] [address] [facility], [address] [place] [address] providing SCOTTY with fax information.
[2019-07-09] MEDS: HALOPERIDOL 5 MG TABLET PO SCH ×2 (08:58→12:14)
[2019-07-09] MEDS ORDERED: CHLORDIAZEPOXIDE HCL 25 MG CAPSULE PO SCH (09:00)
--- NOTE | 2019-07-09 09:04 | NUR ---
TREATMENT CENTER: SCOTTY faxed clinical information to Mary Grace, intake and senior marketing coordinator at [facility] [address] [facility], [address] [place] [address] for an intake appointment.
[2019-07-09] MEDS: ACETAMINOPHEN 325 MG TABLET PO PRN (10:24)
--- NOTE | 2019-07-09 10:26 | NUR ---
PATIENT C/O 5/10 PAIN TO BACK. PRN TYLENOL.
--- NOTE | 2019-07-09 10:27 | NUR ---
TREATMENT CENTER: SCOTTY spoke with Sarina, intake and fire coordinator at [facility] [address] [facility], [address] [place] [address] who confirmed receipt of clinical information and stated she is waiting for the screeners to review pts paperwork before being able to schedule and intake appointment. Sarina stated she will have an answer for SCOTTY soon.
--- NOTE | 2019-07-09 10:29 | NUR ---
FAMILY CONTACT: SCOTTY contacted pts Aryan [phone] and informed him [facility] is in the process of reviewing pts referral and will call as soon as SCOTTY has an update. Aryan stated he also spoke with Sarina and is aware.
--- NOTE | 2019-07-09 11:30 | NUR ---
FAMILY CONTACT: SW received a call from pts Aryan [phone] who informed SW that [facility] has accepted pt and has a telephonic intake appointment at 2:30pm. states that he wishes to pick pt up at 12:30pm to arrange transfer to [facility]. SW will coordinate discharge.
--- NOTE | 2019-07-09 11:45 | NUR ---
DISCHARGE NOTE: Pt will be discharged at 12:30pm via private vehicle home to [address] [place], [place] [id number]. Pts Aryan [phone] will be picking pt up and will arrange transfer to [facility] [address], [address] [place] [id number] . Per , pt has a telephonic intake appointment at 2:30pm and states that pt needs to do the intake over the phone before being admitted. Per , he will transport pt directly to [facility] once discharged from the hospital as he states it is a long drive. Pts mood is anxious and restless with flat affect. Pt denied visual/auditory hallucinations and denied suicidal/homicidal ideation. Pt was given referrals to Psychiatrist: Dr. Mortensen Address: [address] [place] [address] and Mentally Impaired Teacher: Dr. Zoila Wesley Address: [address] [place] [address] . The multidisciplinary exit care form was done, printed, signed, and given to the patient. Addendum: 07/09/19 at 1152 by ELIZABETH FAJARDO [facility] [address], [address] [place] [address] .
--- NOTE | 2019-07-09 13:13 | NUR ---
SHOVEL LOADER OPERATOR NOTE: PATIENT IS A 54 YEAR OLD FEMALE DISCHARGED HOME TO [id number] [place] [id number]. PATIENT IS IN STABLE CONDITION. VSS. NO ACUTE DISTRESS NOTED. NO COMPLAINTS. COMPLIANT WITH MEDICATION MANAGEMENT. COOPERATIVE WITH PLAN OF CARE. PSYCHIATRIC TREATMENT PLANS MET. MEDICAL TREATMENT PLANS DEFERRED FOR CONTINUAL MONITORING. DENIES SI/HI VAH AT THE TIME OF DISCHARGE. SKIN CHECK REFUSED. EDUCATED PATIENT ABOUT AFTERCARE WITH COPY PROVIDED. RETURNED PERSONAL BELONGINGS TO PATIENT. MEDICATIONS RECONCILED WITH DR NOLAN AND ADDY MACIAS ALONG WITH PSYCHIATRIC DISCHARGE ORDERS. DISCHARGE PAPERWORK SIGNED. FOR FOLLOW UP WITH PSYCHIATRIST DR LAKHANI [id number] [facility] [address] [address] JORGE ALBERTO GUEVARA [address] [facility] [address] IN 1 WEEK. PATIENT LEFT THE [facility] GPS VIA PRIVATE CAR AT 1250.
--- NOTE | 2019-07-30 08:58 | NUR ---
15 DAY SUBSTANCE ABUSE FOLLOW UP: Pt is excluded due to D/C to substance abuse residential Tx.
== END 2019-07-09 12:50 | disposition home or self-care (01) | DRG 885 ==
LOC: GPS 11:40
PROVIDERS: ADMIT Psychiatry & Neurology Psychiatry; ATTEND Registered Nurse
DX: F31.64 Bipolar disorder, current episode mixed, severe, with psychotic features (principal); F10.231 Alcohol dependence with withdrawal delirium; R45.851 Suicidal ideations; Y90.1 Blood alcohol level of 20-39 mg/100 ml; Z91.5 Personal history of self-harm; R74.0 Nonspecific elevation of levels of transaminase and lactic acid dehydrogenase [LDH]; Y90.9 Presence of alcohol in blood, level not specified; R56.9 Unspecified convulsions; E87.6 Hypokalemia; T43.222D Poisoning by selective serotonin reuptake inhibitors, intentional self-harm, subsequent encounter
CPT/HCPCS: 36415; 80048-TC; 80053-TC; 80061-TC; 80156-TC; 87081-TC

== ENCOUNTER 2021-09-25 11:27 | Inpatient (IN) | payer OTHER ==
[~2021-09-25] VITALS: Ht 160 cm; Wt 49.9 kg
[~2021-09-25 11:27] MED LIST changes: +BENZ1TAB7 PO; +BENZ2AMP3 IM; +CARB200T PO; -CHLO25CA22 PO; +HALO5SYR IM; +HALO5TAB PO; -QUET25TA PO; +SERT50TA PO; -TOPI25TA49 PO; +TYL2T PO
--- NOTE | 2021-09-25 11:30 | NUR ---
SENT TO ER BED 11. BIB RA 78 FROM HOME, SEIZURE EPISODE WITNESSED BY , LAST ALCOHOL DRINK WAS 5 DAYS AGO, (+) ORAL TRAUMA. SEIZURE PRECAUTIONS APPLIED. DR BUNN AT BEDSIDE.
--- NOTE | 2021-09-25 11:41 | NUR ---
URINE SAMPLE COLLECTED AND SENT
--- NOTE | 2021-09-25 11:43 | NUR ---
COVID SWAB DONE AND SENT TO LAB
[2021-09-25] MEDS ORDERED: LORAZEPAM INJ 2 MG/ML VIAL ONE (11:46)
[2021-09-25] MEDS ORDERED: IV NS 0.9% 1,000 ML BAG IV ONE (12:00)
[2021-09-25] MEDS ORDERED: LORAZEPAM INJ 2 MG/ML VIAL IVP ONE (12:00)
[2021-09-25] MEDS ORDERED: TRAZ-257 PO (12:01)
[2021-09-25] MEDS ORDERED: FLUO20CA42 PO (12:01)
[2021-09-25] MEDS ORDERED: GABA-532 PO (12:01)
[2021-09-25] MEDS ORDERED: TOPI50TA24 PO (12:01)
[2021-09-25 12:12] LABS: BASOPHILS % (AUTO) 0.5 % (0.0-2.0); EOSINOPHILS % (AUTO) 1.2 % (0.0-6.0); HEMATOCRIT 40 % (33-45); HEMOGLOBIN 13.5 g/dL (11.5-14.8); LYMPHOCYTES # (AUTO) 0.9 K/uL (0.8-4.8); MEAN CORPUSCULAR HGB CONC 34 g/dl (31.0-36.0); MEAN CORPUSCULAR VOLUME 95 fL (82-100); MONOCYTES % (AUTO) 20.4 % (2.0-12.0); NEUTROPHILS # (AUTO) 3.1 K/uL (1.8-8.9); NEUTROPHILS % (AUTO) 60.9 % (43.0-81.0); PLATELET COUNT (AUTO) 203 K/uL (150-450); RED BLOOD CELL COUNT(AUTO) 4.16 MIL/uL (4.0-5.2)
[2021-09-25 12:31] LABS: ALANINE AMINOTRANSFERASE 77 U/L (12-78); ALBUMIN 4.2 g/dL (3.4-5.0); ALCOHOL, BLOOD < 3 mg/dL (0-0); ALKALINE PHOSPHATASE 57 U/L (46-116); ASPARTATE AMINOTRANSFERASE 86 U/L (15-37); BILIRUBIN,DIRECT 0.3 mg/dL (0.0-0.2); CARBON DIOXIDE 17 mmol/L (21-32); CHLORIDE 88 mmol/L (98-107); CREATININE 0.8 mg/dL (0.6-1.3); GLUCOSE 196 mg/dL (74-106); POTASSIUM 3.5 mmol/L (3.5-5.1); SODIUM SERUM 122 mmol/L (136-145); TOTAL PROTEIN, SERUM 7.9 g/dL (6.4-8.2); UREA NITROGEN, BLOOD 8 mg/dL (7-18)
--- NOTE | 2021-09-25 14:15 | NUR ---
BED 107
[2021-09-25] MEDS ORDERED: Z GUARD REMEDY 4 OZ OINT TP PRN (14:30)
[2021-09-25] MEDS ORDERED: LORAZEPAM INJ 2 MG/ML VIAL IV PRN (14:30)
[2021-09-25] MEDS ORDERED: MAG HYDROX/AL HYDROX/SIMETH 30 ML UDC PO PRN (14:30)
[2021-09-25] MEDS ORDERED: ONDANSETRON HCL/PF 4 MG/2 ML VIAL IVP PRN (14:30)
[2021-09-25] MEDS ORDERED: ACETAMINOPHEN 325 MG TABLET PO PRN (14:30)
[2021-09-25] MEDS ORDERED: MAGNESIUM HYDROXIDE 30 ML UDC PO PRN (14:30)
--- NOTE | 2021-09-25 14:40 | NUR ---
REPORT GIVEN TO JEFF ART FOR TALIA
--- NOTE | 2021-09-25 15:00 | NUR ---
PT TRANSFERRED TO MED SURG WITH ACLS PROTOCOLS IN PLACE
[2021-09-25] MEDS: IV NS 0.9% 1,000 ML IV SCH (15:04)
--- NOTE | 2021-09-25 15:17 | NUR ---
RN NOTE PATIENT RECEIVED ON THE FLOOR, MEDICALLY STABLE. PATIENT ON ROOM AIR WITH NO SIGNS OF LABORED BREATHING AT THIS TIME. NO SIGNS OF SEIZURES AT THIS TIME. PATIENT REPORT NO PAIN AND NO CHEST DISCOMFORT. RIGHT HAND 20G SL IN PLACE, FLUSHING WELL, NO SIGNS OF INFILTRATION. PATIENT VERBALIZE WISH TO BE FULL CODE. BED LOCKED AND IN LOWEST POSITION, CALL LIGHT WITHIN REACH, 3 SIDE RAILS UP. RAILS ARE PADDED FOR SEIZURE PRECAUTIONS. WILL CONTINUE TO MONITOR.
[2021-09-25 16:00] VITALS: BP 125/59
[2021-09-25 16:31] LABS: ALBUMIN 4.2 g/dL (3.4-5.0); CALCIUM, SERUM 8.7 mg/dL (8.5-10.1); CREATININE 0.8 mg/dL (0.6-1.3); MAGNESIUM 1.9 mg/dL (1.8-2.4); POTASSIUM 3.4 mmol/L (3.5-5.1)
[2021-09-25 16:42] LABS: THYROID STIMULATING HORMONE 4.168 uIU/mL (0.358-3.74)
[2021-09-25] MEDS ORDERED: TOPIRAMATE 25 MG TABLET PO SCH (17:00)
[2021-09-25] MEDS: CHLORDIAZEPOXIDE HCL 25 MG CAPSULE PO SCH (17:14)
[2021-09-25] MEDS: THIAMINE HCL 100 MG TABLET PO SCH (17:14)
--- NOTE | 2021-09-25 18:28 | NUR ---
RN CLOSING NOTE PATIENT IN BED, RESTING. PATIENT ON ROOM AIR WITH NO SIGNS OF LABORED BREATHING AT THIS TIME. RIGHT AC 20G SL IN PLACE RUNNING NS AT 100 CC/HR. ALL NEEDS ATTENDED DURING SHIFT. NO SIGNS OF ACUTE DISTRESS AT THIS TIME. BED LOCKED AND IN LOWEST POSITION, 3 SIDE RAILS UP, CALL LIGHT WITHIN REACH. ALL RAILS PADDED FOR SEIZURE PRECAUTION. WILL ENDORSE TO OUTSIDE OPERATOR NURSE.
[2021-09-25 20:00] VITALS: BP 102/68
[2021-09-25] MEDS: TRAZODONE 50 MG TABLET PO SCH (21:50)
[2021-09-25] MEDS ORDERED: GABAPENTIN 100 MG CAPSULE PO SCH (22:00)
[2021-09-26] MEDS: IV NS 0.9% 1,000 ML IV SCH ×3 (00:06→21:33)
[2021-09-26 04:00] VITALS: BP 105/71
[2021-09-26 06:17] LABS: BASOPHILS % (AUTO) 1.1 % (0.0-2.0); EOSINOPHILS % (AUTO) 2.9 % (0.0-6.0); HEMATOCRIT 36 % (33-45); HEMOGLOBIN 12.2 g/dL (11.5-14.8); LYMPHOCYTES % (AUTO) 28.6 % (20.0-44.0); MEAN CORPUSCULAR HGB CONC 34 g/dl (31.0-36.0); MEAN CORPUSCULAR VOLUME 94 fL (82-100); MONOCYTES # (AUTO) 0.6 K/uL (0.1-1.30); MONOCYTES % (AUTO) 17.9 % (2.0-12.0); NEUTROPHILS # (AUTO) 1.7 K/uL (1.8-8.9); NEUTROPHILS % (AUTO) 49.5 % (43.0-81.0); PLATELET COUNT (AUTO) 163 K/uL (150-450); WHITE BLOOD COUNT (AUTO) 3.5 K/uL (4.3-11.0)
[2021-09-26 06:34] LABS: CALCIUM, SERUM 7.8 mg/dL (8.5-10.1); CREATININE 0.4 mg/dL (0.6-1.3); MAGNESIUM 1.9 mg/dL (1.8-2.4); PHOSPHORUS 1.3 mg/dL (2.5-4.9)
--- NOTE | 2021-09-26 06:37 | NUR ---
RN notes Resting comfortably in bed with no distress noted. Breathing even and unlabored. On room air, tolerating well. Alert and oriented. Able to verbalize needs. No complaint of pain or discomfort. Vital signs wnl. No episode of seizure. Kept clean and dry. Will endorse to next shift for continuity of care.
[2021-09-26 06:41] LABS: POTASSIUM 2.8 mmol/L (3.5-5.1)
--- NOTE | 2021-09-26 06:47 | NUR ---
RN notes Lab called, René, regarding potassium level of 2.8. Relayed to MD, waiting for response.
--- NOTE | 2021-09-26 07:30 | NUR ---
MS RN AM NOTE PT IN BED, AO X 4, ON ROOM AIR, NO SOB, NO DISTRESS, RESPIRATION UNLABORED, NO SIGNS SEIZURES AT THIS TIME. DENIES PAIN/DISCOMFORT, RIGHT HAND 20G WITH NS AT 100ML/HR INFUSING WELL. SITE CLEAR. AMBULATORY, REGULAR DIET. POC DISCUSSED, VERBALIZED UNDERSTANDING. BED LOCKED AND IN LOWEST POSITION, CALL LIGHT WITHIN REACH, 3 SIDE RAILS UP. RAILS ARE PADDED FOR SEIZURE PRECAUTIONS. WILL CONTINUE TO MONITOR.
[2021-09-26 08:00] VITALS: BP 111/71
[2021-09-26] MEDS: POTASSIUM PHOSPHATE MM 7.5 MMOL in IV NS 0.9% 100 ML IV SCH ×2 (08:48→12:03)
[2021-09-26] MEDS: CHLORDIAZEPOXIDE HCL 25 MG CAPSULE PO SCH ×2 (08:48→18:05)
[2021-09-26] MEDS: TOPIRAMATE 100 MG TABLET PO SCH ×2 (08:48→18:05)
[2021-09-26] MEDS: FOLIC ACID 1 MG TABLET PO SCH (08:48)
[2021-09-26] MEDS: SERTRALINE HCL 50 MG TABLET PO SCH (08:49)
--- NOTE | 2021-09-26 09:30 | NUR ---
RN NOTES DUE MEDS GIVEN.
[2021-09-26] MEDS: POTASSIUM CHLORIDE 20 MEQ TAB.PRT.SR PO SCH ×2 (10:17→11:35)
[2021-09-26 16:00] VITALS: BP 109/77
--- NOTE | 2021-09-26 16:45 | NUR ---
RN NOTES PATIENT PICKED UP FOR CT SCAN OF HEAD WO.
[2021-09-26] MEDS: THIAMINE HCL 100 MG TABLET PO SCH (18:05)
--- NOTE | 2021-09-26 18:15 | NUR ---
RN NOTES PATIENT RESTING COMFORTABLY. STABLE. NO SOB. ALL NEEDS MET AT THIS TIME.
--- NOTE | 2021-09-26 19:50 | NUR ---
RN NOTES WILL TRANSFER PATIENT TO [facility]. REPORT GIVEN TO SHAYY FOR TALIA.
[2021-09-26 20:00] VITALS: BP 114/74
--- NOTE | 2021-09-26 20:00 | NUR ---
MS ELEVATOR SERVICE MECHANIC NOTES PATIENT ARRIVED ON UNIT VIA PATIENT BED WITH NURSE. RECEIVED PATIENT LAYING AWAKE IN BED. A/O X 4. PATIENT WITH REGULAR AND UNLABORED BREATHING ON ROOM AIR TOLERATED WELL. NO SIGNS AND SYMPTOMS OF DISTRESS NOTED AT THIS TIME. NO COMPLAINS OF PAIN OR DISCOMFORT AT THIS TIME. IV ACCESS RFA G #20 INFUSING NS @ 100 ML/HR. IV ACCESS PATENT AND INTACT. SAFETY PRECAUTIONS ENFORCED WITH BED LOCKED AND AT LOWEST POSITION. SIDERAILS UP X2. CALL LIGHT WITHIN REACH AT ALL TIMES. WILL CONTINUE TO MONITOR PATIENT.
[2021-09-26] MEDS: TRAZODONE 50 MG TABLET PO SCH (21:35)
[2021-09-27] MEDS: IV NS 0.9% 1,000 ML IV SCH ×2 (06:21→16:30)
--- NOTE | 2021-09-27 06:56 | NUR ---
MS RN CLOSING NOTES PATIENT STILL LAYING AWAKE IN BED. A/O X 4. PATIENT WITH REGULAR AND UNLABORED BREATHING ON ROOM AIR TOLERATED WELL. NO SIGNS AND SYMPTOMS OF DISTRESS NOTED AT THIS TIME. NO COMPLAINS OF PAIN OR DISCOMFORT AT THIS TIME. IV ACCESS RFA G #20 INFUSING NS @ 100 ML/HR. IV ACCESS PATENT AND INTACT. SAFETY PRECAUTIONS ENFORCED WITH BED LOCKED AND AT LOWEST POSITION. SIDERAILS UP X2. CALL LIGHT WITHIN REACH AT ALL TIMES. WILL ENDORSE CONTINUITY OF CARE TO DAY SHIFT NURSE.
[2021-09-27 07:22] LABS: BASOPHILS % (AUTO) 1.2 % (0.0-2.0); EOSINOPHILS % (AUTO) 8.3 % (0.0-6.0); HEMATOCRIT 35 % (33-45); HEMOGLOBIN 11.8 g/dL (11.5-14.8); LYMPHOCYTES # (AUTO) 1.2 K/uL (0.8-4.8); LYMPHOCYTES % (AUTO) 39.3 % (20.0-44.0); MEAN CORPUSCULAR HGB CONC 34 g/dl (31.0-36.0); MEAN CORPUSCULAR VOLUME 96 fL (82-100); MONOCYTES # (AUTO) 0.4 K/uL (0.1-1.30); MONOCYTES % (AUTO) 14.8 % (2.0-12.0); NEUTROPHILS # (AUTO) 1.1 K/uL (1.8-8.9); NEUTROPHILS % (AUTO) 36.4 % (43.0-81.0); PLATELET COUNT (AUTO) 153 K/uL (150-450); RED BLOOD CELL COUNT(AUTO) 3.63 MIL/uL (4.0-5.2)
[2021-09-27 07:38] LABS: CALCIUM, SERUM 8.2 mg/dL (8.5-10.1); CREATININE 0.4 mg/dL (0.6-1.3); PHOSPHORUS 2.2 mg/dL (2.5-4.9); POTASSIUM 3.3 mmol/L (3.5-5.1)
--- NOTE | 2021-09-27 07:52 | NUR ---
MS/RN OPENING NOTES RECEIVED PATIENT LAYING AWAKE IN BED. A/O X 4. PATIENT WITH REGULAR AND UNLABORED BREATHING ON ROOM AIR TOLERATED WELL. NO SIGNS AND SYMPTOMS OF DISTRESS NOTED AT THIS TIME. NO COMPLAINS OF PAIN OR DISCOMFORT AT THIS TIME. IV ACCESS RFA G #20 INFUSING NS @ 100 ML/HR. IV ACCESS PATENT AND INTACT. SAFETY PRECAUTIONS IN PLACED: BED LOCKED AND AT LOWEST POSITION. SIDE RAILS UP X2. CALL LIGHT WITHIN REACH AT ALL TIMES. WILL CONTINUE TO MONITOR.
[2021-09-27] MEDS: SERTRALINE HCL 50 MG TABLET PO SCH (09:00)
[2021-09-27] MEDS: FOLIC ACID 1 MG TABLET PO SCH (09:00)
[2021-09-27] MEDS: CHLORDIAZEPOXIDE HCL 25 MG CAPSULE PO SCH ×2 (09:00→16:36)
[2021-09-27] MEDS: TOPIRAMATE 100 MG TABLET PO SCH ×2 (09:01→16:36)
[2021-09-27] MEDS ORDERED: POTASSIUM CHLORIDE 20 MEQ TAB.PRT.SR PO SCH (09:30)
[2021-09-27] MEDS ORDERED: TOPI100T PO (09:37)
[2021-09-27] MEDS ORDERED: LORA-259 PO (09:37)
[2021-09-27] MEDS: POTASSIUM CHLORIDE 20 MEQ TAB.PRT.SR PO SCH ×2 (10:05→10:33)
[2021-09-27] MEDS: POTASSIUM PHOSPHATE MM 7.5 MMOL in IV NS 0.9% 100 ML IV SCH ×2 (10:15→13:43)
[2021-09-27] MEDS: THIAMINE HCL 100 MG TABLET PO SCH (17:07)
--- NOTE | 2021-09-27 17:30 | NUR ---
MS/LANDSCAPE SUPERVISOR NOTES PATIENT IS ALERT AND ORIENTED X4, ABLE TO MAKE NEEDS KNOWN. AMBULATORY. STABLE ON ROOM AIR. PATIENT IS MEDICALLY STABLE AND DR. STONER ORDERED DC TO HOME. DISCHARGE PAPERS SIGNED, ALL BELONGINGS ACCOUNTED FOR. PATIENT'S CAME AND PICKED UP PATIENT.
== END 2021-09-27 17:45 | disposition home or self-care (01) | DRG 897 ==
LOC: ER 11:30 → TELE1 14:38 → MEDSG1 21:04 → MED 09-26 19:51
PROVIDERS: ADMIT Internal Medicine; ATTEND Internal Medicine
DX: F10.139 Alcohol abuse with withdrawal, unspecified (principal); E87.1 Hypo-osmolality and hyponatremia; G40.509 Epileptic seizures related to external causes, not intractable, without status epilepticus; E86.1 Hypovolemia; K70.9 Alcoholic liver disease, unspecified; Y90.0 Blood alcohol level of less than 20 mg/100 ml; Z20.822 Contact with and (suspected) exposure to COVID-19; Z91.51 Personal history of suicidal behavior; Z88.0 Allergy status to penicillin; Z79.899 Other long term (current) drug therapy; Z88.2 Allergy status to sulfonamides; E87.6 Hypokalemia; S01.512A Laceration without foreign body of oral cavity, initial encounter; X58.XXXA Exposure to other specified factors, initial encounter; Y92.89 Other specified places as the place of occurrence of the external cause; F39 Unspecified mood [affective] disorder; T50.905A Adverse effect of unspecified drugs, medicaments and biological substances, initial encounter; Y92.9 Unspecified place or not applicable
CPT/HCPCS: 36415; 70450-TC; 71045-TC; 80048-TC; 80053-TC; 80076-TC; 83735-TC; 84100-TC; 84443-TC; 85025-TC; 87081-TC; C9803; G0378; G0480; J2060; J3490; J7030

== ENCOUNTER 2023-02-01 04:57 | Emergency (ER) | payer BC, OTHER ==
[~2023-02-01] VITALS: Ht 160 cm; Wt 50.3 kg
[~2023-02-01 04:57] MED LIST changes: -BENZ1TAB7 PO; -BENZ2AMP3 IM; -CARB200T PO; +FLUO20CA42 PO; +GABA-532 PO; -HALO5SYR IM; -HALO5TAB PO; +LORA-259 PO; +TOPI100T PO; +TOPI50TA24 PO; +TRAZ-257 PO; -TYL2T PO
--- NOTE | 2023-02-01 05:03 | NUR ---
[id number] & [employer] FROM HOME C/O ETOH. PT STATED TO MD AT BEDSIDE THAT SHE ALSO TOOK AN UNKNOWN AMOUNT OF LAMICTAL. PT RESPONDING TO QUESTIONS VERBALLY, BUT DOES NOT OPEN HER EYES. ABLE TO MOVE ALL EXTREMITIES. VITALS CHECKED.
[2023-02-01] MEDS ORDERED: ONDANSETRON HCL/PF 4 MG/2 ML VIAL ONE (05:28)
[2023-02-01] MEDS ORDERED: IV NS 0.9% 1,000 ML BAG IV ONE (05:30)
[2023-02-01] MEDS ORDERED: ONDANSETRON HCL/PF 4 MG/2 ML VIAL IVP ONE (05:30)
--- NOTE | 2023-02-01 05:40 | NUR ---
URINE COLLECTED, SENT TO LAB
--- NOTE | 2023-02-01 05:55 | NUR ---
CHAINSTITCH HEMMER AT BEDSIDE; BLOOD WORK COLLECTED
--- NOTE | 2023-02-01 05:57 | NUR ---
DR YAÑEZ REPORT PT'S CASE TO POISON CONTROL FOR POSSIBLE OD ON LAMICTAL. POISON CONTROL'S RECOMMENDATION: OBSERVATION FOR 6 HOURS EKG IN 6 HOURS.
[2023-02-01 06:05] LABS: BASOPHILS % (AUTO) 0.3 % (0.0-2.0); EOSINOPHILS % (AUTO) 0.1 % (0.0-6.0); HEMATOCRIT 39 % (33-45); HEMOGLOBIN 12.7 g/dL (11.5-14.8); LYMPHOCYTES # (AUTO) 0.7 K/uL (0.8-4.8); LYMPHOCYTES % (AUTO) 6.3 % (20.0-44.0); MEAN CORPUSCULAR HGB CONC 33 g/dl (31.0-36.0); MEAN CORPUSCULAR VOLUME 95 fL (82-100); MONOCYTES % (AUTO) 8.5 % (2.0-12.0); NEUTROPHILS # (AUTO) 9.9 K/uL (1.8-8.9); NEUTROPHILS % (AUTO) 84.8 % (43.0-81.0); PLATELET COUNT (AUTO) 283 K/uL (150-450); RED BLOOD CELL COUNT(AUTO) 4.08 MIL/uL (4.0-5.2); WHITE BLOOD COUNT (AUTO) 11.6 K/uL (4.3-11.0)
[2023-02-01 06:15] LABS: BILIRUBIN,URINE NEGATIVE (NEGATIVE); COLOR,URINE OTHER (YELLOW); LEUKOCYTE ESTERASE ,URINE NEGATIVE (NEGATIVE); NITRITE, URINE NEGATIVE (NEGATIVE); PROTEIN,URINE NEGATIVE (NEGATIVE); UGLUCOSE NEGATIVE (NEGATIVE); UROBILINOGEN,URINE 0.2 EU/dL (0.2)
[2023-02-01 06:21] LABS: CALCIUM, SERUM 8.2 mg/dL (8.5-10.1); CARBON DIOXIDE 19 mmol/L (21-32); CHLORIDE 100 mmol/L (98-107); CREATININE 0.6 mg/dL (0.6-1.3); GLUCOSE 74 mg/dL (74-106); POTASSIUM 3.3 mmol/L (3.5-5.1); SODIUM SERUM 135 mmol/L (136-145); UREA NITROGEN, BLOOD 8 mg/dL (7-18)
[2023-02-01 06:25] LABS: ALANINE AMINOTRANSFERASE 113 U/L (12-78); ALBUMIN 3.8 g/dL (3.4-5.0); ALCOHOL, BLOOD 210 mg/dL (0-10); ALKALINE PHOSPHATASE 52 U/L (46-116); ASPARTATE AMINOTRANSFERASE 91 U/L (15-37); BILIRUBIN,DIRECT 0.1 mg/dL (0.0-0.2); BILIRUBIN,TOTAL 0.3 mg/dL (0.2-1.0); TOTAL PROTEIN, SERUM 7.1 g/dL (6.4-8.2)
[2023-02-01 06:41] LABS: RBC,URINE 0-2 /HPF (0-2); WBC,URINE 0-2 /HPF (0-3)
[2023-02-01 06:42] LABS: BACTERIA,URINE Rare /HPF (None Seen); SQUAMOUS EPITHELIAL CELL,UR Rare /HPF (None Seen)
--- NOTE | 2023-02-01 07:55 | NUR ---
PT IS AWAKE AND ALERT X 4. BREATHING EVEN AND UNLABORED. CONNECTED TO THE MONITOR.
--- NOTE | 2023-02-01 12:33 | NUR ---
IV removed. Catheter intact and site benign. Pressure and 4x4 applied to site. No bleeding noted.Patient discharged to home in stable condition. Written and verbal after care instructions given. Patient verbalizes understanding of instruction.
[2023-02-01 12:34] VITALS: BP 120/85; TEMP 98.9
== END 2023-02-01 12:33 | disposition home or self-care (01) ==
LOC: ER 04:59
DX: T42.6X1A Poisoning by other antiepileptic and sedative-hypnotic drugs, accidental (unintentional), initial encounter (principal); F10.129 Alcohol abuse with intoxication, unspecified; G40.909 Epilepsy, unspecified, not intractable, without status epilepticus; Z79.899 Other long term (current) drug therapy; Z88.0 Allergy status to penicillin; Z88.2 Allergy status to sulfonamides; Y90.9 Presence of alcohol in blood, level not specified; Y92.89 Other specified places as the place of occurrence of the external cause
CPT/HCPCS: 99284; 96374; 96361; 93005 ×2; 85025; 80048; 80076; 81001; 36415; 80143; 80320; 80307; J2405; J7030; G0480

== ENCOUNTER 2024-05-14 17:27 | Emergency (ER) | payer OTHER ==
[~2024-05-14] VITALS: Ht 154.9 cm; Wt 49.0 kg
[2024-05-14 18:13] LABS: BASOPHILS # (AUTO) 0.1 K/uL (0.0-0.2); BASOPHILS % (AUTO) 1.2 % (0.0-2.0); EOSINOPHILS % (AUTO) 0.3 % (0.0-6.0); HEMATOCRIT 42 % (33-45); HEMOGLOBIN 13.9 g/dL (11.5-14.8); LYMPHOCYTES # (AUTO) 2.5 K/uL (0.8-4.8); MEAN CORPUSCULAR HEMOGLOBIN 33 PG (26.0-33.0); MEAN CORPUSCULAR HGB CONC 33 g/dl (31.0-36.0); MEAN CORPUSCULAR VOLUME 98 fL (82-100); MONOCYTES # (AUTO) 0.3 K/uL (0.1-1.30); MONOCYTES % (AUTO) 5.6 % (2.0-12.0); NEUTROPHILS # (AUTO) 2.5 K/uL (1.8-8.9); NEUTROPHILS % (AUTO) 46.9 % (43.0-81.0); PLATELET COUNT (AUTO) 453 K/uL (150-450); RED BLOOD CELL COUNT(AUTO) 4.28 MIL/uL (4.0-5.2); RED CELL DISTRIBUTION WIDTH 16.3 % (11.5-15.0); WHITE BLOOD COUNT (AUTO) 5.3 K/uL (4.3-11.0)
[2024-05-14 18:24] LABS: CALCIUM, SERUM 7.8 mg/dL (8.5-10.1); CREATININE 0.6 mg/dL (0.6-1.3); POTASSIUM 3.3 mmol/L (3.5-5.1)
[2024-05-14 18:30] LABS: ALBUMIN 3.5 g/dL (3.4-5.0); BILIRUBIN,TOTAL 0.5 mg/dL (0.2-1.0)
[2024-05-14] MEDS ORDERED: POTASSIUM CHLORIDE 20 MEQ TAB.PRT.SR PO ONE (18:59)
[2024-05-14 19:00] VITALS: TEMP 98.2
[2024-05-14] MEDS: IV NS 0.9% 1,000 ML BAG IV ONE (19:00)
[2024-05-14] MEDS: POTASSIUM CHLORIDE 20 MEQ TAB.PRT.SR PO ONE (19:00)
[2024-05-14 21:28] VITALS: BP 117/80; O2SAT 96
== END 2024-05-14 21:27 | disposition home or self-care (01) ==
LOC: ER 17:28
DX: S22.058A Other fracture of T5-T6 vertebra, initial encounter for closed fracture (principal); S22.068A Other fracture of T7-T8 thoracic vertebra, initial encounter for closed fracture; S22.078A Other fracture of T9-T10 vertebra, initial encounter for closed fracture; S22.088A Other fracture of T11-T12 vertebra, initial encounter for closed fracture; F10.129 Alcohol abuse with intoxication, unspecified; R51.9 Headache, unspecified; R06.00 Dyspnea, unspecified; R10.2 Pelvic and perineal pain; R07.9 Chest pain, unspecified; M25.512 Pain in left shoulder; F32.A Depression, unspecified; Z88.0 Allergy status to penicillin; Z79.899 Other long term (current) drug therapy; Z88.2 Allergy status to sulfonamides; Z87.39 Personal history of other diseases of the musculoskeletal system and connective tissue; W01.0XXA Fall on same level from slipping, tripping and stumbling without subsequent striking against object, initial encounter; Y93.89 Activity, other specified; Y92.89 Other specified places as the place of occurrence of the external cause; Y99.8 Other external cause status
CPT/HCPCS: 99284; 70450; 96360; 96361; 71045; 72170; 72128; 70486; 85025; 83690; 36415; 80053; J7030 ×2; J7050

== ENCOUNTER 2024-08-03 13:05 | Inpatient (IN) | payer OTHER ==
[2024-08-03] VITALS (13 sets, daily range): BP systolic 95–158; BP diastolic 71–115; TEMP 97.8–99.1; O2SAT 99–100
[~2024-08-03] VITALS: Ht 154.9 cm; Wt 46.3 kg
[2024-08-03] MEDS ORDERED: PANTOPRAZOLE 40 MG VIAL ONE (13:34)
[2024-08-03] MEDS: PANTOPRAZOLE 40 MG VIAL IV ONE (13:37)
[2024-08-03 13:49] LABS: HEMATOCRIT 36 % (33-45); HEMOGLOBIN 12.5 g/dL (11.5-14.8); LYMPHOCYTES # (AUTO) 0.5 K/uL (0.8-4.8); LYMPHOCYTES % (AUTO) 2.2 % (20.0-44.0); MEAN CORPUSCULAR HEMOGLOBIN 34 PG (26.0-33.0); MEAN CORPUSCULAR HGB CONC 35 g/dl (31.0-36.0); MEAN CORPUSCULAR VOLUME 97 fL (82-100); MONOCYTES # (AUTO) 0.8 K/uL (0.1-1.30); MONOCYTES % (AUTO) 3.8 % (2.0-12.0); NEUTROPHILS # (AUTO) 20.7 K/uL (1.8-8.9); PLATELET COUNT (AUTO) 267 K/uL (150-450); RED BLOOD CELL COUNT(AUTO) 3.71 MIL/uL (4.0-5.2); WHITE BLOOD COUNT (AUTO) 22.1 K/uL (4.3-11.0)
[2024-08-03] MEDS: OCTREOTIDE 50 MCG/ML AMPUL IV ONE (13:50)
[2024-08-03 13:59] LABS: INR 1.05 (0.91-1.10); PARTIAL THROMBOPLASTIN TIME 24.7 SEC (24.3-34.3); PROTHROMBIN TIME 11.1 SECS (9.2-11.1)
[2024-08-03] MEDS ORDERED: OCTREOTIDE 50 MCG in IV NS 0.9% 50 ML IV ONE (14:00)
[2024-08-03 14:02] LABS: CALCIUM, SERUM 8.4 mg/dL (8.5-10.1); CREATININE 1.6 mg/dL (0.6-1.3); POTASSIUM 3.5 mmol/L (3.5-5.1)
[2024-08-03 14:07] LABS: ALBUMIN 4.3 g/dL (3.4-5.0); BILIRUBIN,DIRECT 0.3 mg/dL (0.0-0.2); BILIRUBIN,TOTAL 0.9 mg/dL (0.2-1.0); TOTAL PROTEIN, SERUM 8.4 g/dL (6.4-8.2)
[2024-08-03] MEDS ORDERED: ESTR1PAT23 TD (14:17)
[2024-08-03] MEDS: IV NS 0.9% 1,000 ML BAG IV ONE ×2 (15:05→15:30)
[2024-08-03] MEDS ORDERED: LORAZEPAM INJ 2 MG/ML VIAL ONE (15:07)
[2024-08-03] MEDS: LORAZEPAM INJ 2 MG/ML VIAL IV ONE (15:10)
[2024-08-03 15:19] LABS: LACTIC ACID 12.4 mmol/L (0.4-2.0)
[2024-08-03] MEDS ORDERED: Z GUARD REMEDY 4 OZ OINT TP PRN (15:30)
[2024-08-03] MEDS ORDERED: IV NS 0.9% 1,000 ML IV PRN (15:30)
[2024-08-03] MEDS: OCTREOTIDE 1,250 MCG in IV NS 0.9% 250 ML IV ONE (15:40)
[2024-08-03] MEDS ORDERED: LEVOFLOXACIN 500 MG /D5W 100ML 500 MG in PREMIX 1 EA IV SCH (16:00)
[2024-08-03] MEDS: FLAGYL/NS RTU 500 MG/100 ML PIGGYBACK IV ONE (16:20)
[2024-08-03] MEDS: PANTOPRAZOLE 80 MG in IV NS 0.9% 500 ML IV ONE (16:30)
[2024-08-03] MEDS ORDERED: ACETAMINOPHEN 325 MG TABLET ONE (16:40)
[2024-08-03] MEDS: ACETAMINOPHEN 325 MG TABLET PO PRN (16:44)
[2024-08-03] MEDS ORDERED: PANTOPRAZOLE 40 MG VIAL IV SCH (17:00)
[2024-08-03] MEDS: LEVOFLOXACIN 750 MG /D5W 150ML PIGGYBACK IV ONE (17:00)
[2024-08-03] MEDS ORDERED: OCTREOTIDE 1,250 MCG in IV NS 0.9% 247.5 ML IV SCH (18:00)
[2024-08-03] MEDS: OCTREOTIDE 1,250 MCG in IV NS 0.9% 247.5 ML IV PRN (18:03)
[2024-08-03] MEDS: Folic acid 1 MG in IV D5W 50 ML IV SCH (18:38)
[2024-08-03] MEDS: PANTOPRAZOLE 80 MG in IV NS 0.9% 500 ML IV SCH (18:38)
[2024-08-03] MEDS: Thiamine 100 MG in IV D5W 50 ML IV SCH (18:39)
[2024-08-03] MEDS: IV NS 0.9% 1,000 ML IV PRN (18:39)
[2024-08-03] MEDS ORDERED: CIPROFLOXACIN IV RTU 200 MG in PREMIX 1 EA IV SCH (19:00)
[2024-08-03] MEDS: ONDANSETRON HCL/PF 4 MG/2 ML VIAL IVP PRN (19:05)
[2024-08-03] MEDS: CIPROFLOXACIN IV RTU 200 MG in PREMIX 1 EA IV SCH (20:01)
[2024-08-03 20:48] LABS: BASOPHILS # (AUTO) 0.1 K/uL (0.0-0.2); BASOPHILS % (AUTO) 0.3 % (0.0-2.0); HEMATOCRIT 31 % (33-45); HEMOGLOBIN 10.5 g/dL (11.5-14.8); LYMPHOCYTES # (AUTO) 0.2 K/uL (0.8-4.8); LYMPHOCYTES % (AUTO) 0.9 % (20.0-44.0); MEAN CORPUSCULAR HEMOGLOBIN 33 PG (26.0-33.0); MEAN CORPUSCULAR HGB CONC 34 g/dl (31.0-36.0); MEAN CORPUSCULAR VOLUME 97 fL (82-100); MONOCYTES # (AUTO) 0.7 K/uL (0.1-1.30); NEUTROPHILS # (AUTO) 17.8 K/uL (1.8-8.9); NEUTROPHILS % (AUTO) 94.8 % (43.0-81.0); PLATELET COUNT (AUTO) 173 K/uL (150-450); RED BLOOD CELL COUNT(AUTO) 3.21 MIL/uL (4.0-5.2); RED CELL DISTRIBUTION WIDTH 15.3 % (11.5-15.0); WHITE BLOOD COUNT (AUTO) 18.8 K/uL (4.3-11.0)
[2024-08-03 21:03] LABS: CALCIUM, SERUM 6.5 mg/dL (8.5-10.1); POTASSIUM 3.7 mmol/L (3.5-5.1)
[2024-08-03] MEDS: CHLORDIAZEPOXIDE HCL 25 MG CAPSULE PO SCH (21:51)
[2024-08-03] MEDS: LORAZEPAM INJ 2 MG/ML VIAL IV PRN (22:31)
[2024-08-04] VITALS (33 sets, daily range): BP systolic 115–163; BP diastolic 67–105; TEMP 98.4–99.2; O2SAT 90–100
[2024-08-04 04:43] LABS: BASOPHILS % (AUTO) 0.1 % (0.0-2.0); HEMATOCRIT 25 % (33-45); HEMOGLOBIN 8.5 g/dL (11.5-14.8); LYMPHOCYTES # (AUTO) 0.4 K/uL (0.8-4.8); LYMPHOCYTES % (AUTO) 2.7 % (20.0-44.0); MEAN CORPUSCULAR HEMOGLOBIN 33 PG (26.0-33.0); MEAN CORPUSCULAR HGB CONC 34 g/dl (31.0-36.0); MEAN CORPUSCULAR VOLUME 95 fL (82-100); MONOCYTES # (AUTO) 0.9 K/uL (0.1-1.30); MONOCYTES % (AUTO) 5.5 % (2.0-12.0); NEUTROPHILS # (AUTO) 14.5 K/uL (1.8-8.9); NEUTROPHILS % (AUTO) 91.7 % (43.0-81.0); PLATELET COUNT (AUTO) 142 K/uL (150-450); RED BLOOD CELL COUNT(AUTO) 2.61 MIL/uL (4.0-5.2); RED CELL DISTRIBUTION WIDTH 15.3 % (11.5-15.0); WHITE BLOOD COUNT (AUTO) 15.9 K/uL (4.3-11.0)
[2024-08-04 05:13] LABS: CALCIUM, SERUM 6.1 mg/dL (8.5-10.1); CREATININE 0.6 mg/dL (0.6-1.3); PHOSPHORUS 2.5 mg/dL (2.5-4.9); POTASSIUM 4.1 mmol/L (3.5-5.1)
[2024-08-04 05:36] LABS: MAGNESIUM 1.2 mg/dL (1.8-2.4)
[2024-08-04] MEDS: CIPROFLOXACIN IV RTU 400 MG in PREMIX 1 EA IV SCH (07:56)
[2024-08-04] MEDS: TRAMADOL HCL 50 MG TABLET PO PRN (09:43)
[2024-08-04] MEDS: Magnesium 1GM/D5W 100ML PREMIX 100 ML IV SCH (12:57)
[2024-08-04] MEDS: PANTOPRAZOLE 40 MG VIAL IV SCH (16:03)
[2024-08-04] MEDS: SUCRALFATE 1 G/10 ML UDC PO SCH (16:03)
[2024-08-04 16:34] LABS: CREATININE, URINE 15.6 MG/DL (30.0-125.0)
[2024-08-04 16:38] LABS: APPEARANCE,URINE CLEAR (CLEAR); BILIRUBIN,URINE NEGATIVE (NEGATIVE); BLOOD, URINE 2+ Ery/uL (NEGATIVE); COLOR,URINE YELLOW (YELLOW); KETONES,URINE 1+ mg/dL (NEGATIVE); LEUKOCYTE ESTERASE ,URINE 3+ (NEGATIVE); NITRITE, URINE NEGATIVE (NEGATIVE); PH,URINE 6.5 (5.0-8.0); PROTEIN,URINE NEGATIVE (NEGATIVE); UGLUCOSE NEGATIVE (NEGATIVE); UROBILINOGEN,URINE 0.2 EU/dL (0.2)
[2024-08-04 16:41] LABS: URINE TOTAL PROTEIN 32.5 mg/dL (0-11.9)
[2024-08-04 16:47] LABS: RBC,URINE 21-50 /HPF (0-2)
[2024-08-04 16:48] LABS: ADD URINE CULTURE YES; BACTERIA,URINE 3+ /HPF (None Seen); WBC,URINE 31 /HPF (0-3)
[2024-08-04 17:41] LABS: EOSINOPHIL,URINE None Seen
[2024-08-04] MEDS: MENTHOL/CETYLPYRD (CEPACOL) 1 LOZ LOZENGE PO PRN (19:56)
[2024-08-05] VITALS (18 sets, daily range): BP systolic 100–148; BP diastolic 64–97; TEMP 97.5–98.7; O2SAT 95–100
[2024-08-05 05:11] LABS: BASOPHILS % (AUTO) 0.2 % (0.0-2.0); EOSINOPHILS % (AUTO) 0.2 % (0.0-6.0); HEMATOCRIT 26 % (33-45); HEMOGLOBIN 8.9 g/dL (11.5-14.8); LYMPHOCYTES # (AUTO) 0.9 K/uL (0.8-4.8); LYMPHOCYTES % (AUTO) 12.7 % (20.0-44.0); MEAN CORPUSCULAR HEMOGLOBIN 34 PG (26.0-33.0); MEAN CORPUSCULAR HGB CONC 35 g/dl (31.0-36.0); MEAN CORPUSCULAR VOLUME 96 fL (82-100); MONOCYTES # (AUTO) 0.4 K/uL (0.1-1.30); MONOCYTES % (AUTO) 5.5 % (2.0-12.0); NEUTROPHILS # (AUTO) 5.9 K/uL (1.8-8.9); NEUTROPHILS % (AUTO) 81.4 % (43.0-81.0); PLATELET COUNT (AUTO) 92 K/uL (150-450); RED BLOOD CELL COUNT(AUTO) 2.66 MIL/uL (4.0-5.2); RED CELL DISTRIBUTION WIDTH 15.4 % (11.5-15.0); WHITE BLOOD COUNT (AUTO) 7.2 K/uL (4.3-11.0)
[2024-08-05 05:31] LABS: ANISOCYTOSIS 1+; BASOPHILS % (MANUAL) 0 % (0.0-2.0); EOSINOPHILS % (MANUAL) 0 % (0-4); LYMPHOCYTES % (MANUAL) 11 % (16-48); MONOCYTES % (MANUAL) 5 % (0-11.0); NEUTROPHILS % (MANUAL) 84 (42-76); PLATELET ESTIMATE DECREASED; STOMATOCYTES FEW
[2024-08-05 08:38] LABS: CALCIUM, SERUM 6.9 mg/dL (8.5-10.1); CREATININE 0.4 mg/dL (0.6-1.3); MAGNESIUM 2.1 mg/dL (1.8-2.4); POTASSIUM 3.2 mmol/L (3.5-5.1)
[2024-08-05] MEDS: POTASSIUM CHLORIDE 20 MEQ TAB.PRT.SR PO ONE ×2 (10:16→18:46)
[2024-08-05 16:49] LABS: CALCIUM, SERUM 7.7 mg/dL (8.5-10.1); CREATININE 0.4 mg/dL (0.6-1.3); POTASSIUM 3.1 mmol/L (3.5-5.1)
[2024-08-06 04:00] VITALS: BP 132/89; TEMP 98.1; O2SAT 97
[2024-08-06 07:29] LABS: CREATININE 0.3 mg/dL (0.6-1.3)
[2024-08-06 07:45] LABS: MAGNESIUM 1.9 mg/dL (1.8-2.4)
[2024-08-06 07:50] LABS: THYROID STIMULATING HORMONE 4.91 uIU/mL (0.358-3.74); URIC ACID 1.3 mg/dL (2.6-7.2)
[2024-08-06 08:00] VITALS: BP 127/92; TEMP 97.9; O2SAT 99
[2024-08-06 08:58] LABS: PHOSPHORUS 0.7 mg/dL (2.5-4.9)
[2024-08-06] MEDS: POTASSIUM CHLORIDE 20 MEQ TAB.PRT.SR PO ONE (09:16)
[2024-08-06] MEDS ORDERED: POTASSIUM PHOSPHATE MM 15 MMOL in IV NS 0.9% 250 ML IV SCH (09:30)
[2024-08-06 10:00] VITALS: BP 127/92; TEMP 97.9; O2SAT 99
[2024-08-06] MEDS: POTASSIUM PHOSPHATE MM 7.5 MMOL in IV NS 0.9% 100 ML IV SCH (10:23)
[2024-08-06 16:00] VITALS: BP 122/87; TEMP 98.6; O2SAT 100
[2024-08-06 20:00] VITALS: BP 114/85; TEMP 98.4; O2SAT 98
[2024-08-07 06:52] LABS: ALBUMIN 2.2 g/dL (3.4-5.0); BASOPHILS % (AUTO) 0.4 % (0.0-2.0); BILIRUBIN,TOTAL 1.2 mg/dL (0.2-1.0); CALCIUM, SERUM 7.9 mg/dL (8.5-10.1); CREATININE 0.4 mg/dL (0.6-1.3); EOSINOPHILS # (AUTO) 0.1 K/uL (0.0-0.7); EOSINOPHILS % (AUTO) 3.1 % (0.0-6.0); HEMATOCRIT 28 % (33-45); HEMOGLOBIN 9.3 g/dL (11.5-14.8); LYMPHOCYTES # (AUTO) 1.8 K/uL (0.8-4.8); LYMPHOCYTES % (AUTO) 37.2 % (20.0-44.0); MAGNESIUM 1.7 mg/dL (1.8-2.4); MEAN CORPUSCULAR HEMOGLOBIN 33 PG (26.0-33.0); MEAN CORPUSCULAR HGB CONC 33 g/dl (31.0-36.0); MEAN CORPUSCULAR VOLUME 101 fL (82-100); MONOCYTES # (AUTO) 0.8 K/uL (0.1-1.30); MONOCYTES % (AUTO) 16.8 % (2.0-12.0); NEUTROPHILS # (AUTO) 2.1 K/uL (1.8-8.9); NEUTROPHILS % (AUTO) 42.5 % (43.0-81.0); PHOSPHORUS 1.1 mg/dL (2.5-4.9); PLATELET COUNT (AUTO) 105 K/uL (150-450); RED BLOOD CELL COUNT(AUTO) 2.82 MIL/uL (4.0-5.2); RED CELL DISTRIBUTION WIDTH 15.6 % (11.5-15.0); TOTAL PROTEIN, SERUM 5.3 g/dL (6.4-8.2); WHITE BLOOD COUNT (AUTO) 4.8 K/uL (4.3-11.0)
[2024-08-07 08:00] VITALS: BP 124/85; TEMP 97.7; O2SAT 99
[2024-08-07 08:23] LABS: POTASSIUM 2.8 mmol/L (3.5-5.1)
[2024-08-07] MEDS ORDERED: Sodium Phosphate 15 MMOL in IV NS 0.9% 245 ML IV SCH (09:00)
[2024-08-07] MEDS: MAGNESIUM OXIDE 400 MG TABLET PO SCH (09:41)
[2024-08-07] MEDS: POTASSIUM CHLORIDE 20 MEQ TAB.PRT.SR PO ONE (09:41)
[2024-08-07] MEDS: Sodium Phosphate 15 MMOL in IV NS 0.9% 245 ML IV ONE (11:00)
[2024-08-07] MEDS: THIAMINE HCL 100 MG TABLET PO SCH (12:15)
[2024-08-07] MEDS: FOLIC ACID 1 MG TABLET PO SCH (12:15)
[2024-08-07 16:00] VITALS: BP 117/69; TEMP 98.4; O2SAT 100
[2024-08-07] MEDS: CIPROFLOXACIN HCL 500 MG TABLET PO SCH (18:46)
[2024-08-07 21:08] VITALS: BP 122/80; TEMP 97.5; O2SAT 98
[2024-08-07 21:56] VITALS: BP 122/80; TEMP 97.5; O2SAT 98
[2024-08-08 06:41] LABS: BASOPHILS % (AUTO) 0.5 % (0.0-2.0); EOSINOPHILS # (AUTO) 0.2 K/uL (0.0-0.7); EOSINOPHILS % (AUTO) 3.2 % (0.0-6.0); HEMATOCRIT 24 % (33-45); HEMOGLOBIN 8.1 g/dL (11.5-14.8); LYMPHOCYTES # (AUTO) 1.5 K/uL (0.8-4.8); LYMPHOCYTES % (AUTO) 30.5 % (20.0-44.0); MEAN CORPUSCULAR HEMOGLOBIN 33 PG (26.0-33.0); MEAN CORPUSCULAR HGB CONC 35 g/dl (31.0-36.0); MEAN CORPUSCULAR VOLUME 96 fL (82-100); MONOCYTES # (AUTO) 1.4 K/uL (0.1-1.30); MONOCYTES % (AUTO) 28.3 % (2.0-12.0); NEUTROPHILS # (AUTO) 1.8 K/uL (1.8-8.9); NEUTROPHILS % (AUTO) 37.5 % (43.0-81.0); PLATELET COUNT (AUTO) 134 K/uL (150-450); RED BLOOD CELL COUNT(AUTO) 2.43 MIL/uL (4.0-5.2); RED CELL DISTRIBUTION WIDTH 15.5 % (11.5-15.0); WHITE BLOOD COUNT (AUTO) 4.9 K/uL (4.3-11.0)
[2024-08-08 07:12] LABS: CREATININE 0.4 mg/dL (0.6-1.3); MAGNESIUM 1.3 mg/dL (1.8-2.4); PHOSPHORUS 1.6 mg/dL (2.5-4.9)
[2024-08-08 08:00] VITALS: BP 110/68; TEMP 97.3; O2SAT 97
[2024-08-08] MEDS: POTASSIUM PHOSPHATE MM 7.5 MMOL in IV NS 0.9% 100 ML IV SCH (09:21)
[2024-08-08] MEDS: SUCRALFATE 1 G TABLET PO SCH (09:24)
[2024-08-08] MEDS: POTASSIUM CHLORIDE 20 MEQ TAB.PRT.SR PO ONE (09:25)
[2024-08-08] MEDS: MAGNESIUM OXIDE 400 MG TABLET PO ONE (09:27)
[2024-08-08 09:54] LABS: EOSINOPHILS % (MANUAL) 6 % (0-4); LYMPHOCYTES % (MANUAL) 35 % (16-48); MONOCYTES % (MANUAL) 16 % (0-11.0); NEUTROPHILS % (MANUAL) 43 (42-76)
[2024-08-08 09:55] LABS: ANISOCYTOSIS 1+; HYPOCHROMASIA 1+; PLATELET ESTIMATE DECREASED; STOMATOCYTES 1+
[2024-08-08] MEDS ORDERED: Folic Acid PO (11:51)
[2024-08-08] MEDS ORDERED: Thiamine HCL PO (11:51)
[2024-08-08] MEDS ORDERED: PANT40TA2 PO (11:51)
[2024-08-08] MEDS ORDERED: SUCR1TAB31 PO (11:55)
[2024-08-08 16:00] VITALS: BP 110/74; TEMP 97.5; O2SAT 96
[2024-08-08] MEDS: K PHOS NEUTRAL 250 MG TABLET PO ONE (16:23)
== END 2024-08-08 18:15 | disposition home health service (06) | DRG 380 ==
LOC: ER 13:10 → TRANSITION 17:32 → ICU 17:34 → MED 08-05 13:25
PROVIDERS: ADMIT Internal Medicine; ATTEND Internal Medicine
PROC: 0DJ08ZZ Inspection of Upper Intestinal Tract, Via Natural or Artificial Opening Endoscopic (ICD-10-PCS; principal; 2024-08-04)
DX: K22.11 Ulcer of esophagus with bleeding (principal); K85.90 Acute pancreatitis without necrosis or infection, unspecified; N17.0 Acute kidney failure with tubular necrosis; F10.239 Alcohol dependence with withdrawal, unspecified; R65.10 Systemic inflammatory response syndrome (SIRS) of non-infectious origin without acute organ dysfunction; E87.20 Acidosis, unspecified; E87.1 Hypo-osmolality and hyponatremia; K21.01 Gastro-esophageal reflux disease with esophagitis, with bleeding; K44.9 Diaphragmatic hernia without obstruction or gangrene; M89.8X9 Other specified disorders of bone, unspecified site; K29.60 Other gastritis without bleeding; D64.9 Anemia, unspecified; E86.9 Volume depletion, unspecified; E83.39 Other disorders of phosphorus metabolism; E83.42 Hypomagnesemia; E87.6 Hypokalemia; F32.A Depression, unspecified; K76.0 Fatty (change of) liver, not elsewhere classified; Z88.0 Allergy status to penicillin; Z88.2 Allergy status to sulfonamides; I95.9 Hypotension, unspecified
CPT/HCPCS: 36415; 71045-TC; 76705-TC; 80048-TC; 80053-TC; 80076-TC; 81001; 82570-TC; 83605-TC; 83690-TC; 83735-TC; 84100-TC; 84300-TC; 84439-TC; 84443-TC; 84481; 84550-TC; 85025-TC; 85730-TC; 86850-TC; 87040-TC; 87086-TC; 93307-TC; 97110-TC; 97116-TC; 97530-TC; A4216; A4223; A9563; G0378; G0480; J0744; J1956; J2060; J2354; J2405; J2470; J2704; J3411; J3475; J3490; J7030; J7040; J7050; J7060

== ENCOUNTER 2024-09-26 21:09 | Emergency (ER) | payer OTHER ==
[~2024-09-26] VITALS: Ht 154.9 cm; Wt 54.4 kg
[~2024-09-26 21:09] MED LIST changes: +ESTR1PAT23 TD; -FLUO20CA42 PO; +Folic Acid PO; -GABA-532 PO; -LORA-259 PO; +PANT40TA2 PO; -SERT50TA PO; +SUCR1TAB31 PO; -THIA100T88 PO; -TOPI100T PO; -TOPI50TA24 PO; -TRAZ-257 PO; +Thiamine HCL PO
[2024-09-26] MEDS ORDERED: ONDANSETRON HCL/PF 4 MG/2 ML VIAL ONE (21:26)
[2024-09-26] MEDS: IV NS 0.9% 1,000 ML BAG IV ONE (21:36)
[2024-09-26] MEDS: ONDANSETRON HCL/PF 4 MG/2 ML VIAL IVP ONE (21:37)
[2024-09-26] MEDS ORDERED: FAMOTIDINE/PF INJ 20 MG/2 ML VIAL IV ONE (21:43)
[2024-09-26] MEDS: FAMOTIDINE/PF INJ 20 MG/2 ML VIAL IV ONE (21:48)
[2024-09-26 21:49] LABS: BASOPHILS # (AUTO) 0.2 K/uL (0.0-0.2); BASOPHILS % (AUTO) 4.1 % (0.0-2.0); EOSINOPHILS # (AUTO) 0.1 K/uL (0.0-0.7); EOSINOPHILS % (AUTO) 2.5 % (0.0-6.0); HEMATOCRIT 37 % (33-45); HEMOGLOBIN 12.5 g/dL (11.5-14.8); LYMPHOCYTES # (AUTO) 2.2 K/uL (0.8-4.8); LYMPHOCYTES % (AUTO) 56.8 % (20.0-44.0); MEAN CORPUSCULAR HEMOGLOBIN 31 PG (26.0-33.0); MEAN CORPUSCULAR HGB CONC 34 g/dl (31.0-36.0); MEAN CORPUSCULAR VOLUME 90 fL (82-100); MONOCYTES # (AUTO) 0.6 K/uL (0.1-1.30); MONOCYTES % (AUTO) 14.8 % (2.0-12.0); NEUTROPHILS # (AUTO) 0.8 K/uL (1.8-8.9); NEUTROPHILS % (AUTO) 21.8 % (43.0-81.0); PLATELET COUNT (AUTO) 659 K/uL (150-450); RED BLOOD CELL COUNT(AUTO) 4.07 MIL/uL (4.0-5.2); WHITE BLOOD COUNT (AUTO) 3.8 K/uL (4.3-11.0)
[2024-09-26 21:57] LABS: CALCIUM, SERUM 8.6 mg/dL (8.5-10.1); CARBON DIOXIDE 28 mmol/L (21-32); CHLORIDE 102 mmol/L (98-107); CREATININE 0.6 mg/dL (0.6-1.3); GLUCOSE 84 mg/dL (74-106); POTASSIUM 3.3 mmol/L (3.5-5.1); SODIUM SERUM 142 mmol/L (136-145); UREA NITROGEN, BLOOD 6 mg/dL (7-18)
[2024-09-26 21:59] VITALS: TEMP 99.1
[2024-09-26 22:03] LABS: ALANINE AMINOTRANSFERASE 200 U/L (12-78); ALBUMIN 4.2 g/dL (3.4-5.0); ALKALINE PHOSPHATASE 90 U/L (46-116); ASPARTATE AMINOTRANSFERASE 289 U/L (15-37); BILIRUBIN,DIRECT 0.1 mg/dL (0.0-0.2); BILIRUBIN,TOTAL 0.3 mg/dL (0.2-1.0); LIPASE 45 U/L (16-77); TOTAL PROTEIN, SERUM 8.2 g/dL (6.4-8.2)
[2024-09-26 22:21] LABS: APPEARANCE,URINE CLEAR (CLEAR); BILIRUBIN,URINE NEGATIVE (NEGATIVE); BLOOD, URINE NEGATIVE Ery/uL (NEGATIVE); COLOR,URINE YELLOW (YELLOW); KETONES,URINE NEGATIVE (NEGATIVE); LEUKOCYTE ESTERASE ,URINE NEGATIVE (NEGATIVE); NITRITE, URINE NEGATIVE (NEGATIVE); PROTEIN,URINE NEGATIVE (NEGATIVE); UGLUCOSE NEGATIVE (NEGATIVE); UROBILINOGEN,URINE 0.2 EU/dL (0.2)
[2024-09-27] MEDS ORDERED: LORAZEPAM 1 MG TABLET ONE (04:52)
[2024-09-27] MEDS: LORAZEPAM 1 MG TABLET PO ONE (04:55)
[2024-09-27 06:21] VITALS: BP 148/79; O2SAT 98
== END 2024-09-27 06:21 | disposition home or self-care (01) ==
LOC: ER 21:39
DX: R11.2 Nausea with vomiting, unspecified (principal); R10.13 Epigastric pain; F32.A Depression, unspecified; Z79.899 Other long term (current) drug therapy; Z88.0 Allergy status to penicillin; Z88.2 Allergy status to sulfonamides; Z86.69 Personal history of other diseases of the nervous system and sense organs
CPT/HCPCS: 99284; 96374; 96361; 96375; 93005; 85025; 80048; 83690; 80076; 81003; 36415; 84484; 80320; J3490; J2405; J7030; 87086-TC; G0480

== ENCOUNTER 2024-12-03 19:03 | Emergency (ER) | payer OTHER ==
[~2024-12-03] VITALS: Ht 160 cm; Wt 49.9 kg
[2024-12-03] MEDS ORDERED: ONDANSETRON HCL/PF 4 MG/2 ML VIAL ONE (20:17)
[2024-12-03] MEDS: IV NS 0.9% 1,000 ML BAG IV ONE (20:18)
[2024-12-03 20:29] LABS: BASOPHILS # (AUTO) 0.1 K/uL (0.0-0.2); BASOPHILS % (AUTO) 1.4 % (0.0-2.0); EOSINOPHILS % (AUTO) 0.3 % (0.0-6.0); HEMATOCRIT 41 % (33-45); LYMPHOCYTES # (AUTO) 1.9 K/uL (0.8-4.8); LYMPHOCYTES % (AUTO) 36.1 % (20.0-44.0); MEAN CORPUSCULAR HEMOGLOBIN 28 PG (26.0-33.0); MEAN CORPUSCULAR HGB CONC 34 g/dl (31.0-36.0); MEAN CORPUSCULAR VOLUME 83 fL (82-100); MONOCYTES # (AUTO) 0.5 K/uL (0.1-1.30); MONOCYTES % (AUTO) 9.1 % (2.0-12.0); NEUTROPHILS # (AUTO) 2.8 K/uL (1.8-8.9); NEUTROPHILS % (AUTO) 53.1 % (43.0-81.0); PLATELET COUNT (AUTO) 384 K/uL (150-450); RED BLOOD CELL COUNT(AUTO) 4.94 MIL/uL (4.0-5.2); RED CELL DISTRIBUTION WIDTH 16.9 % (11.5-15.0); WHITE BLOOD COUNT (AUTO) 5.3 K/uL (4.3-11.0)
[2024-12-03 20:42] LABS: CALCIUM, SERUM 9.2 mg/dL (8.5-10.1); CREATININE 0.5 mg/dL (0.6-1.3); POTASSIUM 3.2 mmol/L (3.5-5.1)
[2024-12-03] MEDS: ONDANSETRON HCL/PF 4 MG/2 ML VIAL IVP ONE (20:45)
[2024-12-03 20:48] LABS: ALBUMIN 4.4 g/dL (3.4-5.0); BILIRUBIN,DIRECT 0.2 mg/dL (0.0-0.2); BILIRUBIN,TOTAL 0.5 mg/dL (0.2-1.0); MAGNESIUM 2.2 mg/dL (1.8-2.4)
[2024-12-03] MEDS ORDERED: POTASSIUM CHLORIDE 20 MEQ TAB.PRT.SR PO ONE (21:28)
[2024-12-03] MEDS: POTASSIUM CHLORIDE 20 MEQ TAB.PRT.SR PO ONE (21:32)
[2024-12-03] MEDS ORDERED: IBUPROFEN 400 MG TABLET ONE (21:53)
[2024-12-03] MEDS: IBUPROFEN 600 MG TABLET PO ONE (21:54)
[2024-12-03] MEDS: LORAZEPAM INJ 2 MG/ML VIAL IV ONE ×2 (21:54→23:16)
[2024-12-03] MEDS ORDERED: LORAZEPAM INJ 2 MG/ML VIAL ONE (23:16)
[2024-12-04] MEDS ORDERED: CHLO25CA22 PO (04:56)
[2024-12-04 05:56] LABS: APPEARANCE,URINE CLEAR (CLEAR); BILIRUBIN,URINE NEGATIVE (NEGATIVE); BLOOD, URINE 1+ Ery/uL (NEGATIVE); COLOR,URINE YELLOW (YELLOW); KETONES,URINE 2+ mg/dL (NEGATIVE); LEUKOCYTE ESTERASE ,URINE NEGATIVE (NEGATIVE); NITRITE, URINE NEGATIVE (NEGATIVE); PROTEIN,URINE 2+ mg/dl (NEGATIVE); UGLUCOSE NEGATIVE (NEGATIVE); UROBILINOGEN,URINE 0.2 EU/dL (0.2)
[2024-12-04 06:06] LABS: AMPHETAMINE, URINE NEGATIVE (NEGATIVE); BARBITURATE, URINE NEGATIVE (NEGATIVE); BENZODIAZEPINE, URINE NEGATIVE (NEGATIVE); CANNABINOID, URINE NEGATIVE (NEGATIVE); COCCAINE, URINE NEGATIVE (NEGATIVE); OPIATE, URINE NEGATIVE (NEGATIVE); PHENCYCLIDINE SCREEN,URINE NEGATIVE (NEGATIVE)
[2024-12-04 06:14] LABS: ALCOHOL, BLOOD 354 mg/dL (0-10); SALICYLATE 1.2 mg/dL (2.8-20.0)
[2024-12-04 06:15] LABS: ACETAMINOPHEN <10 ug/ml (10-30)
[2024-12-04 06:21] LABS: SQUAMOUS EPITHELIAL CELL,UR Many /HPF (None Seen)
[2024-12-04 06:42] LABS: ADD URINE CULTURE YES; BACTERIA,URINE Moderate /HPF (None Seen); MUCUS,URINE Moderate /LPF (None Seen)
[2024-12-04 06:43] LABS: COARSE GRANULAR CASTS,URINE Few /LPF (None Seen)
[2024-12-04 11:08] VITALS: BP 138/78; TEMP 98.2; O2SAT 100
== END 2024-12-04 11:12 ==
LOC: ER 19:06
DX: F10.10 Alcohol abuse, uncomplicated (principal); R11.10 Vomiting, unspecified; R51.9 Headache, unspecified; F41.9 Anxiety disorder, unspecified; F32.A Depression, unspecified; Z79.899 Other long term (current) drug therapy; Z88.0 Allergy status to penicillin; Z88.2 Allergy status to sulfonamides; Z20.822 Contact with and (suspected) exposure to COVID-19; Z59.00 Homelessness unspecified; Z86.69 Personal history of other diseases of the nervous system and sense organs; Z87.39 Personal history of other diseases of the musculoskeletal system and connective tissue; Y90.8 Blood alcohol level of 240 mg/100 ml or more
CPT/HCPCS: 99285; 96374; 96361; 96375; 96376; 85025; 80048; 83690; 80076; 83735; 36415 ×2; 81001; 87426; 80143; 80320 ×2; 80307; J2060 ×2; J2405; J7030; 87086-TC; G0480

== ENCOUNTER 2024-12-18 09:53 | Inpatient (IN) | payer OTHER ==
[~2024-12-18] VITALS: Ht 160 cm; Wt 49.0 kg
[~2024-12-18 09:53] MED LIST changes: +CHLO25CA22 PO
[2024-12-18 10:19] LABS: BASOPHILS % (AUTO) 0.2 % (0.0-2.0); HEMATOCRIT 36 % (33-45); HEMOGLOBIN 11.8 g/dL (11.5-14.8); LYMPHOCYTES # (AUTO) 1.2 K/uL (0.8-4.8); LYMPHOCYTES % (AUTO) 12.1 % (20.0-44.0); MEAN CORPUSCULAR HEMOGLOBIN 28 PG (26.0-33.0); MEAN CORPUSCULAR HGB CONC 32 g/dl (31.0-36.0); MEAN CORPUSCULAR VOLUME 88 fL (82-100); MONOCYTES # (AUTO) 0.5 K/uL (0.1-1.30); MONOCYTES % (AUTO) 5.3 % (2.0-12.0); NEUTROPHILS # (AUTO) 8.4 K/uL (1.8-8.9); NEUTROPHILS % (AUTO) 82.4 % (43.0-81.0); PLATELET COUNT (AUTO) 406 K/uL (150-450); RED BLOOD CELL COUNT(AUTO) 4.15 MIL/uL (4.0-5.2); RED CELL DISTRIBUTION WIDTH 17.9 % (11.5-15.0); WHITE BLOOD COUNT (AUTO) 10.2 K/uL (4.3-11.0)
[2024-12-18] MEDS: IV NS 0.9% 1,000 ML BAG IV ONE (10:25)
[2024-12-18 10:27] LABS: CALCIUM, SERUM 9.2 mg/dL (8.5-10.1); CARBON DIOXIDE 15 mmol/L (21-32); CHLORIDE 100 mmol/L (98-107); CREATININE 0.8 mg/dL (0.6-1.3); GLUCOSE 132 mg/dL (74-106); POTASSIUM 3.7 mmol/L (3.5-5.1); SODIUM SERUM 136 mmol/L (136-145); UREA NITROGEN, BLOOD 5 mg/dL (7-18)
[2024-12-18] MEDS ORDERED: SODIUM BICARBONATE SYR 50 MEQ/50 ML DISP.SYRIN ONE (10:27)
[2024-12-18] MEDS: SODIUM BICARBONATE SYR 50 MEQ/50 ML DISP.SYRIN IV ONE (10:30)
[2024-12-18 10:40] LABS: ALANINE AMINOTRANSFERASE 35 U/L (12-78); ALBUMIN 4.1 g/dL (3.4-5.0); ALCOHOL, BLOOD 105 mg/dL (0-10); ALKALINE PHOSPHATASE 68 U/L (46-116); ASPARTATE AMINOTRANSFERASE 34 U/L (15-37); BILIRUBIN,DIRECT 0.1 mg/dL (0.0-0.2); BILIRUBIN,TOTAL 0.2 mg/dL (0.2-1.0); SALICYLATE 1.9 mg/dL (2.8-20.0); TOTAL PROTEIN, SERUM 8.7 g/dL (6.4-8.2)
[2024-12-18 10:50] LABS: ACETAMINOPHEN <10 ug/ml (10-30)
[2024-12-18] MEDS ORDERED: LORAZEPAM INJ 2 MG/ML VIAL ONE (11:05)
[2024-12-18] MEDS: LORAZEPAM INJ 2 MG/ML VIAL IV ONE (11:07)
[2024-12-18 11:29] LABS: APPEARANCE,URINE SLIGHTLY CLOUDY (CLEAR); BILIRUBIN,URINE Negative (NEGATIVE); BLOOD, URINE Negative Ery/uL (NEGATIVE); COLOR,URINE Other (YELLOW); KETONES,URINE 15 mg/dL (NEGATIVE); LEUKOCYTE ESTERASE ,URINE Small (NEGATIVE); PH,URINE 6.5 (5.0-8.0); PROTEIN,URINE Negative (NEGATIVE); UGLUCOSE Negative (NEGATIVE); UROBILINOGEN,URINE 0.2 EU/dL (0.2)
[2024-12-18 11:36] LABS: NITRITE, URINE NEGATIVE (NEGATIVE)
[2024-12-18 11:44] LABS: ADD URINE CULTURE YES; BACTERIA,URINE 1+ /HPF (None Seen); RBC,URINE 0-2 /HPF (0-2)
[2024-12-18 11:53] LABS: AMPHETAMINE, URINE NEGATIVE (NEGATIVE); BARBITURATE, URINE NEGATIVE (NEGATIVE); CANNABINOID, URINE NEGATIVE (NEGATIVE); COCCAINE, URINE NEGATIVE (NEGATIVE); OPIATE, URINE NEGATIVE (NEGATIVE); PHENCYCLIDINE SCREEN,URINE NEGATIVE (NEGATIVE)
[2024-12-18 12:00] LABS: BENZODIAZEPINE, URINE POSITIVE (NEGATIVE)
[2024-12-18] MEDS ORDERED: Z GUARD REMEDY 4 OZ OINT TP PRN (14:00)
[2024-12-18] MEDS ORDERED: LORAZEPAM INJ 2 MG/ML VIAL IV PRN (14:00)
[2024-12-18] MEDS: IV LR 1000 ML 1,000 ML IV SCH (14:57)
[2024-12-18] MEDS: ENOXAPARIN SODIUM 40 MG/0.4 ML DISP.SYRIN SQ SCH (15:03)
[2024-12-18 20:00] VITALS: BP 125/85; TEMP 98.1; O2SAT 98
[2024-12-18] MEDS: ACETAMINOPHEN 325 MG TABLET PO PRN (20:30)
[2024-12-18] MEDS: CHLORDIAZEPOXIDE HCL 10 MG CAPSULE PO SCH (21:30)
[2024-12-18 23:25] VITALS: BP 125/85; TEMP 98.1; O2SAT 98
[2024-12-18] MEDS: DIVALPROEX SODIUM 125 MG TABLET.DR PO SCH (23:47)
[2024-12-18] MEDS: FOLIC ACID 1 MG TABLET PO SCH (23:47)
[2024-12-19] VITALS: BP 135/95; TEMP 98.1; O2SAT 99
[2024-12-19] MEDS: CHLORDIAZEPOXIDE HCL 5 MG CAPSULE PO ONE (00:54)
[2024-12-19 04:00] VITALS: BP 136/97; TEMP 97.7; O2SAT 99
[2024-12-19 07:19] VITALS: TEMP 97.7
[2024-12-19 07:37] LABS: BASOPHILS # (AUTO) 0.1 K/uL (0.0-0.2); EOSINOPHILS # (AUTO) 0.1 K/uL (0.0-0.7); EOSINOPHILS % (AUTO) 1.2 % (0.0-6.0); HEMATOCRIT 31 % (33-45); HEMOGLOBIN 10.1 g/dL (11.5-14.8); LYMPHOCYTES # (AUTO) 2.7 K/uL (0.8-4.8); LYMPHOCYTES % (AUTO) 45.6 % (20.0-44.0); MEAN CORPUSCULAR HEMOGLOBIN 28 PG (26.0-33.0); MEAN CORPUSCULAR HGB CONC 33 g/dl (31.0-36.0); MEAN CORPUSCULAR VOLUME 85 fL (82-100); MONOCYTES # (AUTO) 0.7 K/uL (0.1-1.30); MONOCYTES % (AUTO) 11.9 % (2.0-12.0); NEUTROPHILS # (AUTO) 2.4 K/uL (1.8-8.9); NEUTROPHILS % (AUTO) 40.3 % (43.0-81.0); PLATELET COUNT (AUTO) 360 K/uL (150-450); RED BLOOD CELL COUNT(AUTO) 3.66 MIL/uL (4.0-5.2); RED CELL DISTRIBUTION WIDTH 18.2 % (11.5-15.0)
[2024-12-19 08:21] LABS: CREATININE 0.6 mg/dL (0.6-1.3); MAGNESIUM 1.8 mg/dL (1.8-2.4); PHOSPHORUS 3.9 mg/dL (2.5-4.9)
[2024-12-19 08:42] LABS: POTASSIUM 2.7 mmol/L (3.5-5.1)
[2024-12-19] MEDS: THIAMINE HCL 100 MG TABLET PO SCH (08:52)
[2024-12-19] MEDS: POTASSIUM CHLORIDE 20 MEQ TAB.PRT.SR PO ONE (15:16)
[2024-12-19] MEDS ORDERED: POTASSIUM CHLORIDE 20 MEQ TAB.PRT.SR PO ONE (21:00)
== END 2024-12-19 19:15 | disposition home or self-care (01) | DRG 918 ==
LOC: ER 09:55 → TELE 12:59
PROVIDERS: ADMIT Nurse Practitioner Acute Care; ATTEND Nurse Practitioner Acute Care
DX: T42.6X2A Poisoning by other antiepileptic and sedative-hypnotic drugs, intentional self-harm, initial encounter (principal); R45.851 Suicidal ideations; F10.139 Alcohol abuse with withdrawal, unspecified; G40.909 Epilepsy, unspecified, not intractable, without status epilepticus; Y90.5 Blood alcohol level of 100-119 mg/100 ml; Y92.009 Unspecified place in unspecified non-institutional (private) residence as the place of occurrence of the external cause; Z88.2 Allergy status to sulfonamides; Z88.0 Allergy status to penicillin; E87.6 Hypokalemia; F32.A Depression, unspecified; Z91.51 Personal history of suicidal behavior; Z79.899 Other long term (current) drug therapy; F39 Unspecified mood [affective] disorder; I45.81 Long QT syndrome; F10.129 Alcohol abuse with intoxication, unspecified
CPT/HCPCS: 36415; 80048-TC; 80076-TC; 81001; 83735-TC; 84100-TC; 85025-TC; 87086-TC; A4223; G0378; G0480; J1650; J2060; J3490; J7030; J7120